=== PATIENT | female | born 1950 | race Caucasian/White ===

== ENCOUNTER → 2016-07-29 | Outpatient (REF) | payer MEDICARE, BC, OTHER ==
[~2016-07-29] MED LIST: /CELE20CA OR; /CELE20CA PO; /ONDA4TA SL; /PANT40TA OR; /WARF25TA OR; ACET65TA OR; ACET65TA PO; ALLE25CA OR; ALLE25CA PO; ATOR1TAB19 PO; BISOPROLOL PO; CALCIUM CITRATE PO; CALCIUM PO; CALCTAB54 PO; COLA100C2 PO; COZA100T2 PO; DIOV160T5 OR; FLON0.05; FLUO20CA8 PO; FLUO20SO PO; GLUC500T3 PO; LIPI10TA OR; LIPI10TA PO; MAG 64 PO; MAGN400T5 PO; MAGNESIUM ASPARTATE PO; MOM30SS PO; MULTIVIT PO; NEUR600T PO; OMEGA FISH OIL PO; PAROXETINE PO; PERC5TAB8 OR; PROZ20CA OR; SLOWTAB OR; SYSTANE ULTRA OU; TRAM50TA2 OR; TRAM50TA2 PO; TYLE325T5 PO; ULTR50TA PO; VIT D 2000 PO; ZEBE5TAB OR; ZOCO5TAB OR; [UNRECOGNIZED DRUG - OTHER] PO; [UNRECOGNIZED DRUG - OTHER] PO; cephalexin OR; pristiq PO; systane TOP
== END ==
LOC: M LAB REF 17:05
PROVIDERS: ATTEND Specialist
DX: Z12.4 Encounter for screening for malignant neoplasm of cervix (principal)
CPT/HCPCS: 87624; G0123

== ENCOUNTER → 2016-09-19 | Outpatient (REF) | payer MEDICARE, BC, OTHER | LOC: M LAB REF 09:26 | PROVIDERS: ATTEND Internal Medicine Gastroenterology | DX: K52.9 Noninfective gastroenteritis and colitis, unspecified (principal) ==

== ENCOUNTER → 2016-12-02 | Outpatient (REF) | payer MEDICARE, OTHER | LOC: M LAB REF 16:33 | PROVIDERS: ATTEND Nurse Practitioner Adult Health | DX: J02.9 Acute pharyngitis, unspecified (principal) ==

== ENCOUNTER → 2017-02-04 | Outpatient (REF) | payer MEDICARE, OTHER | LOC: M LAB REF 13:21 | PROVIDERS: ATTEND Internal Medicine | DX: M10.072 Idiopathic gout, left ankle and foot (principal) ==

== ENCOUNTER → 2017-07-23 | Outpatient (REF) | payer MEDICARE, OTHER ==
[2017-07-23 14:21] LABS: LIPASE 499 U/L (73-393)
[2017-07-23 14:21] LABS: AMYLASE 83 U/L (25-115)
== END ==
LOC: M LAB REF 13:34
DX: R11.2 Nausea with vomiting, unspecified (principal)
CPT/HCPCS: 82150

== ENCOUNTER → 2017-09-15 | Outpatient (REF) | payer MEDICARE, OTHER ==
[2017-09-15 18:46] LABS: LIPASE 250 U/L (73-393)
[2017-09-15 18:46] LABS: AMYLASE 60 U/L (25-115)
== END ==
LOC: M LAB REF 16:45
DX: R10.811 Right upper quadrant abdominal tenderness (principal)
CPT/HCPCS: 82150

== ENCOUNTER → 2017-12-30 | Outpatient (CLI) | payer MEDICARE, BC, OTHER | LOC: M RAD 08:06 | DX: R07.81 Pleurodynia (principal); R10.9 Unspecified abdominal pain; M51.34 Other intervertebral disc degeneration, thoracic region; Z96.653 Presence of artificial knee joint, bilateral | CPT/HCPCS: 78306 ==

== ENCOUNTER → 2018-09-03 | Outpatient (REF) | payer MEDICARE, OTHER | LOC: M LAB REF 16:19 | PROVIDERS: ATTEND Internal Medicine | DX: Z01.89 Encounter for other specified special examinations (principal) ==

== ENCOUNTER → 2018-09-06 | Outpatient (REF) | payer MEDICARE, OTHER | LOC: M LAB REF 16:24 | PROVIDERS: ATTEND Internal Medicine | DX: J34.89 Other specified disorders of nose and nasal sinuses (principal) ==

== ENCOUNTER → 2018-11-18 | Outpatient (REF) | payer MEDICARE, OTHER ==
[~2018-11-18] MED LIST changes: -/CELE20CA OR; -/CELE20CA PO; -/ONDA4TA SL; -/PANT40TA OR; -/WARF25TA OR; +CELE1CAP4 OR; +CELE1CAP4 PO; +COUM1TAB18 OR; +ONDA-1 SL; +PROT1TAB2 OR
[2018-11-19 10:53] LABS: CA19-9 TUMOR MARKER,CARBOHYDRA 208.5 U/ML (<35.0)
== END ==
LOC: M LAB REF 12:45
PROVIDERS: ATTEND Nurse Practitioner Adult Health
DX: R10.11 Right upper quadrant pain (principal); R35.0 Frequency of micturition

== ENCOUNTER → 2019-08-18 | Outpatient (REF) | payer MEDICARE, OTHER ==
[2019-08-19 11:07] LABS: CA19-9 TUMOR MARKER,CARBOHYDRA 41.5 U/ML (<35.0)
== END ==
LOC: M LAB REF 16:36
PROVIDERS: ATTEND Nurse Practitioner Adult Health
DX: R10.11 Right upper quadrant pain (principal); K86.1 Other chronic pancreatitis

== ENCOUNTER → 2020-06-29 | Outpatient (CLI) | payer MEDICARE, OTHER ==
[2020-06-29 16:11] LABS: CREATININE FOR GFR 1.14 MG/DL (0.55-1.30); GLOMERULAR FILTRATION RATE 49.9 (>39)
== END ==
LOC: M WUC 14:36
PROVIDERS: ATTEND Surgery
DX: Z01.818 Encounter for other preprocedural examination (principal); R10.84 Generalized abdominal pain

== ENCOUNTER → 2020-08-16 | Outpatient (CLI) | payer MEDICARE, OTHER ==
--- NOTE | 2020-08-22 01:44 | ECWPNPC ---
PATIENT NAME: GALEN MARTIN : 1950 GENDER: FEMALE VISIT DATE: 08/16/2020 DISCHARGE DATE: 08/16/20 1413 VISIT LOCKED DATE TIME: PHYSICIAN: CLARISSA CONLEY PHYSICIAN PAGER NO: ACTIVE RESOURCE: CLARISSA CONLEY REASON FOR APPOINTMENT 1. ABDOMINAL WALL TRIGGER POINTS HISTORY OF PRESENT ILLNESS DEPRESSION SCREENING: PHQ-2 (2015 EDITION) LITTLE INTEREST OR PLEASURE IN DOING THINGS?NOT AT ALL FEELING DOWN, DEPRESSED, OR HOPELESS?SEVERAL DAYS TOTAL SCORE1 GENERAL: PLEASANT 70-YEAR-OLD FEMALE REFERRED BY DR. KANG TO EVALUATE PERSISTENT ABDOMINAL BURNING PAIN. HISTORY OF MULTIPLE ABDOMINAL HERNIA REPAIRS WITH LAST ONE DONE IN 2013. THIS IS A NEW PAIN THAT BEGAN AFTER PUSHING A WHEELCHAIR APPROXIMATELY [address] SCAN OF THE ABDOMEN AND PELVIS DONE RECENTLY IS BENIGN. PATIENT REPORTS INTERMITTENT BURNING PAIN THAT STARTS ON THE RIGHT MID ABDOMEN AND TRANSVERSES TO THE LEFT APPROXIMATELY 2 TIMES A DAY. REPORTING NORMAL BOWEL AND BLADDER FUNCTION. REPORTS NORMAL ACTIVITY LEVEL. UNDER A LOT OF STRESS LATELY. CURRENTLY BEING EVALUATED BY HER [employer] PRINCIPAL ,DR. WELDON, DUE TO PALPITATIONS. TODAY SHE IS WEARING A HOLTER MONITOR AND IS SCHEDULED FOR FURTHER CARDIAC TESTING. ALSO STATES THAT THEY ARE CONSIDERING STARTING A BETA DWIGHT. DISCUSSED MEDICATION AND TREATMENT OPTIONS. -. FALL RISK SCREENING: SCREENING :NO FALLS REPORTED IN THE LAST YEAR PAIN SCREENING: PATIENT HAS A COMPLAINT OF ACUTE OR CHRONIC PAIN :YES LOCATION OF PAIN:ABDOMEN INTENSITY OF PAIN (SCALE OF 1 TO 10):3 WHAT DOES YOUR PAIN FEEL LIKE:BURNING, INTERMITTENT, TENDER RADIATES ACROSS THE ABDOMEN. DURATION:PERIODIC, INTERMITTENT PAIN IS INCREASED BY:ACTIVITIES, PROLONGED STANDING PAIN IS DECREASED BY:OTHERS PUSHING DOWN ON ABDOMEN RELIEVES THE PAIN. TREATMENT/MEDICATIONS USED TO MANAGE PAIN:OTC PAIN RELIEVERS LEVEL OF RELIEF FROM PAIN TREATMENTS IN THE PAST:25% NURSING NOTE: -. PAIN CENTER INTAKE QUESTIONS: DO YOU HAVE A HISTORY OF MRSA? :YES 09/21/2012 AFTER HERNIA REPAIR IN [place]. DO YOU TAKE A BLOOD THINNERS? :YES ASPIRIN 81MG DO YOU HAVE ANY BLEEDING DISORDERS? :NO ANY NEW NUMBNESS OR WEAKNESS IN YOUR LEGS OR ARMS? :NO ANY PACEMAKER,DEFIBRILLATOR, OR DORSAL COLUMN STIMULATOR? :NO DO YOU HAVE ANY RASHES OR OPEN SORES? :NO ARE YOU ALLERGIC TO IV DYE? :NO ARE YOU DIABETIC? :NO ANY NEW PROBLEMS WITH YOUR MEDICATIONS? :NO HAVE YOU RECEIVED A VACCINE IN THE PAST 30 DAYS? :NO DO YOU PLAN TO RECEIVE A VACCINE IN THE NEXT 21 DAYS? :YES WOULD LIKE THE COVID VACCINATION WHEN IT BECOMES AVAILABLE. DO YOU NEED ANY PRESCRIPTION? :NO DO YOU TAKE ANY IMMUNOSUPPRESSIVE MEDICATIONS? :NO IS THERE A CHANCE YOU COULD BE ? :NO ARE YOU BREAST FEEDING? :NO CURRENT MEDICATIONS TAKING LOSARTAN POTASSIUM 100 MG TABLET 1 TABLET ORALLY ONCE A DAY TAKING HYDROCHLOROTHIAZIDE 12.5 MG CAPSULE 1 CAPSULE IN THE MORNING ORALLY ONCE A DAY TAKING OMEPRAZOLE 40 MG CAPSULE DELAYED RELEASE 1 CAPSULE 30 MINUTES BEFORE MORNING MEAL ORALLY ONCE A DAY TAKING ASPIRIN 81 81 MG TABLET DELAYED RELEASE 1 TABLET ORALLY ONCE A DAY TAKING CALCIUM CITRATE +D 315-250 MG-UNIT TABLET 1 TABLET ORALLY TWICE A DAY TAKING GLUCOSAMINE CHONDRO COMPLEX TAKING MAGNESIUM OXIDE 400 MG TABLET 1 TABLET NEEDED ORALLY ONCE A DAY TAKING ONE-A-DAY WOMENS - TABLET DIRECTED ORALLY TAKING SERTRALINE HCL 50 MG TABLET 1 TABLET ORALLY ONCE A DAY TAKING ATORVASTATIN CALCIUM 10 MG TABLET 1 TABLET ORALLY ONCE A DAY TAKING CEPHALEXIN 500 MG CAPSULE 1 CAPSULE ORALLY EVERY 6 HRS TAKING ACETAMINOPHEN EXTRA STRENGTH 500 MG TABLET 2 TABLET NEEDED ORALLY DIRECTED TAKING PROBIOTIC ACIDOPHILUS - TABLET DIRECTED ORALLY TAKING VITAMIN C 1000 MG TABLET 1 TABLET ORALLY ONCE A DAY TAKING ZYRTEC ALLERGY 10 MG TABLET 1 TABLET ORALLY ONCE A DAY TAKING SYSTANE ULTRA 0.4-0.3 % SOLUTION DIRECTED OPHTHALMIC TAKING FISH OIL 1000 MG CAPSULE 2 CAPSULE ORALLY ONCE A DAY NOT-TAKING SERTRALINE HCL 25 MG TABLET 1 TABLET ORALLY ONCE A DAY MEDICATION LIST REVIEWED AND RECONCILED WITH THE PATIENT PAST MEDICAL HISTORY ESSENTIAL HYPERTENSION HEART DISEASE- AORTIC VALVE DISEASE OSETOARTHRITIS NODULES ON THYROID AND 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 PALPITATIONS BARRETTS ESOPHAGUS/INTESTINAL METAPLASIA RIGHT VENTRICLE BUNDLE BLOCK HIGH CHOLESTEROL ANTIBODY TO RED CELL ANTIGEN K ALLERGIES MORPHINE SULFATE: SENSITIVITY DILAUDID: OVERSEDATION SURGICAL HISTORY CESEARAN SECTION 04/1974 HYSTERECTOMY TUMOR-PARAGANGLLOMA CAROTID ARTERY RIGHT KNEE REPLACEMENT LEFT KNEE REPLACEMENT VENTRAL HERNIA REPAIR -LAPOROSCOPIC 08/15/2011 HEART CATHETERIZATION BILATERAL LASER EYE SURGERY- DRAIN HOLES INSERTED GI TUMOR REMOVED THYROPLASTY- VOCAL CORD PROTHESIS INSERTED INCISIONAL HERNIAL REPAIR 02/20/2012 INCISIONAL HERNIAL REPAIR 09/21/2012 INCISINAL HERNIAL REPAIR AT [facility] 05/05/2014 SOCIAL HISTORY GENERAL: TOBACCO USE ARE YOU A:NONSMOKER LATEX QUESTIONNAIRE LATEX ALLERGY : HAVE YOU EVER DEVELOPED ANY TYPE OF REACTION AFTER HANDLING LATEX PRODUCTS SUCH RUBBER GLOVES, CONDOMS, DIAPHRAGMS, BALLOONS, SOCKS, OR UNDERWEAR?NO LATEX ALLERGY : HAVE YOU EVER DEVELOPED ANY TYPE OF REACTION DURING OR AFTER DENTAL APPOINTMENT, VAGINAL/RECTAL EXAMINATION, SURGICAL PROCEDURE, OR ANY OTHER EXPOSURE?NO LATEX RISK : HAVE YOU EVER HAD ANY DIFFICULTY BREATHING OR HIVES AFTER EATING OR HANDLING ANY FRUITS, OR VEGETABLES; SUCH KIWI, BANANAS, STONE FRUITS, OR CHESTNUTSYES LATEX RISK : DO YOU HAVE A PREVIOUS PERSONAL HISTORY OF MORE THAN NINE SURGERIES, SPINA BIFIDA, OR REPEATED CATHERIZATIONS? YES LATEX RISK : ARE YOU FREQUENTLY EXPOSED TO LATEX PRODUCTS IN YOUR OCCUPATION?NO DATE ASKED : 08/16/2020 ALCOHOL USE: NO. RECREATIONAL DRUG USE DRUG USE?YES LEARNING BARRIERS / SPECIAL NEEDS BARRIERS TO LEARNING?NO HEARING IMPAIRED?YES SLIGHT DEFICIT VISION IMPAIRED?YES :CORRECTIVE LENSES COGNITIVELY IMPAIRED?NO READINESS TO LEARN?YES LEARNING PREFERENCES?NO LEARNING CAPABILITIES PRESENT?YES EMOTIONAL BARRIERS?YES SPECIAL DEVICES?NO DUST MIXER NEEDED?NO REVIEW OF SYSTEMS CONSTITUTIONAL: ANY RECENT FEVER NO . CHILLS NO . WEIGHT CHANGE OF UNKNOWN REASONS NO . GASTROENTEROLOGY: NEW UNEXPLAINABLE CHANGES IN BOWEL CONTROL NO . CONSTIPATION NO . GENITOURINARY: ANY NEW CHANGE IN BLADDER CONTROL? NO . NEUROLOGY: NEW ONSET DIZZINESS OR NEUROLOGICAL CHANGES NOT MENTIONED NO . NEW NUMBNESS OR PAIN PATTERNS NOT MENTIONED AND PERTINENT TO TODAY'S VISIT NO . CARDIOLOGY: NEW CHEST PRESSURE NO . NEW CHEST PAIN NO . RESPIRATORY: UNEXPLAINABLE COUGH NO . NEW SHORTNESS OF BREATH NO . VITAL SIGNS WT 171.2 LBS, HT 62 IN, BMI 31.31 INDEX, BP 160/70 MM HG, REPEAT BP 148/64 MM HG, HR 74 /MIN, RR 18 /MIN, TEMP 99 F, OXYGEN SAT % 95%, SAFE IN ENV? (Y/N) YES, REVIEWED BY: BERTHA. EXAMINATION GENERAL EXAMINATION: GENERALNO ACUTE DISTRESS, WELL NOURISHED AND HYDRATED. PSYCHAPPROPRIATE MOOD AND AFFECT . FACE:UNREMARKABLE. NECK:NO LYMPHADENOPATHY, SUPPLE. LUNGS:CLEAR TO AUSCULTATION BILATERALLY, NO WHEEZES, RHONCHI, RALES. HEART:SLIGHT IRREGULAR RHYTHM. NORMAL RATE. ABDOMEN:NO SPECIFIC TENDERNESS ELICITED WITH PALPATION . ONE AREA CLOSE TO NAVAL REGION WAS A LITTLE BIT TENDER. NO SCAR NEUROMA NOTED. DIAGNOSTIC TESTS REVIEWEDCT ABDOMEN AND PELVIS JUNE 2020 . ASSESSMENTS NEURALGIA INVOLVING ABDOMEN - M79.2 (PRIMARY) TREATMENT NEURALGIA INVOLVING ABDOMEN NOTES: WE WILL CONSIDER TREATMENT OPTIONS ONCE MEDICALLY STABALIZED.CURRENTLY BEING EVALUATED FOR HEART PALPITAIONS WITH CARDIOLOGY. OTHERS CLINICAL NOTES: 08/16/20 MANUAL BP RETAKEN AND PROVIDED TO PROVIDER. CHETAN LOPEZ MA. PROCEDURE CODES FA211 ESTABILISHED PATIENT [facility] CHARGE DISPOSITION & COMMUNICATION FOLLOW UP 2 MONTHS (REASON: ABDOMEN NEURALGIA/CONSIDER GABAPENTIN) ELECTRONICALLY SIGNED BY ELLIOTT BURNETTE ON 08/21/2020 AT 05:50 PM EST DISCLAIMER : THIS IS A VISIT SUMMARY EXTRACTED FROM THE [employer] CHART. IT IS NOT A COPY OF THE [employer] PROGRESS NOTE. TARA
== END ==
LOC: M PAIN 13:00
PROVIDERS: ATTEND Nurse Practitioner Family
DX: M79.2 Neuralgia and neuritis, unspecified (principal); I10 Essential (primary) hypertension; I35.8 Other nonrheumatic aortic valve disorders; M19.90 Unspecified osteoarthritis, unspecified site; K22.70 Barrett's esophagus without dysplasia; E78.00 Pure hypercholesterolemia, unspecified; Z79.82 Long term (current) use of aspirin; Z79.899 Other long term (current) drug therapy; Z88.5 Allergy status to narcotic agent

== ENCOUNTER → 2020-10-02 | Outpatient (CLI) | payer MEDICARE, OTHER ==
--- NOTE | 2020-10-02 15:50 | REP ---
INDICATION: RIGHT SIDED RIB PAIN, T6 AREA COMPARISON: 12/25/2017 TECHNIQUE: PA and lateral. FINDINGS: The mediastinum and cardiac silhouette are normal. The lung garcia demonstrate chronic appearing changes. Relatively new opacity at the right lung base suggesting atelectasis and possible small pleural reaction requires correlation. No further consolidation, effusion, or pneumothorax. Skeletal structures intact. IMPRESSION: Opacity at the right base suggesting atelectasis and possible small pleural effusions/pleural reaction. <Electronically signed by Fam Hatfield > 10/02/20 [id number]
== END ==
LOC: M WUC 14:46
PROVIDERS: ATTEND Physician Assistant Medical
DX: R91.8 Other nonspecific abnormal finding of lung field (principal)

== ENCOUNTER → 2020-10-10 | Outpatient (CLI) | payer MEDICARE, OTHER ==
--- NOTE | 2020-10-10 16:27 | REP ---
INDICATION: PAIN AND SWELLING AFTER FALL. COMPARISON: Or comparison study January 22, 2015.. TECHNIQUE: Five views. FINDINGS: Five views of the right knee demonstrate right knee arthroplasty components in good position unchanged.. There is mild diffuse osteopenia. Vascular calcification is noted. No fracture or subluxation is seen.. No opaque foreign body noted. IMPRESSION: Status post right knee arthroplasty. No traumatic abnormality noted. Vascular calcification and mild diffuse osteopenia.. <Electronically signed by Tc Sprague > 10/10/20 9201
== END ==
LOC: M WUC 14:19
PROVIDERS: ATTEND Physician Assistant Medical
DX: M25.561 Pain in right knee (principal); Z96.651 Presence of right artificial knee joint; M85.88 Other specified disorders of bone density and structure, other site

== ENCOUNTER → 2020-10-15 | Outpatient (CLI) | payer MEDICARE, OTHER ==
--- NOTE | 2020-10-17 05:33 | ECWPNPC ---
PATIENT NAME: GALEN MARTIN : 1950 GENDER: FEMALE VISIT DATE: 10/15/2020 DISCHARGE DATE: 10/15/20 0947 VISIT LOCKED DATE TIME: PHYSICIAN: CLARISSA CONLEY PHYSICIAN PAGER NO: ACTIVE RESOURCE: CLARISSA CONLEY REASON FOR APPOINTMENT 1. ABDOMEN NEURALGIA/CONSIDER GABAPENTIN HISTORY OF PRESENT ILLNESS GENERAL: HERE FOR FOLLOW-UP OF CHRONIC ABDOMINAL PAIN WITH HISTORY OF MULTIPLE ABDOMINAL SURGERIES. INJURED HER ABDOMINAL MUSCLES PUSHING A WHEELCHAIR THIS PAST JUNE. PAIN IS SLOWLY IMPROVING. REPORTS INTERMITTENT EPISODES OF PAIN THAT RESPONDED TO PRESSURE. DISCUSSED MEDICATION OPTIONS. AT THIS POINT HER PAIN IS NOT SEVERE ENOUGH TO CONSIDER INTERVENTIONAL OR MEDICATIONS AND PATIENT IS IN AGREEMENT WITH THIS. FALL RISK SCREENING: SCREENING 09/30/2020 HAD ONE FALL HURT HER RIGHT KNEE, FALL ON THE RIGHT SIDE OF HER BODY. PAIN SCREENING: PATIENT HAS A COMPLAINT OF ACUTE OR CHRONIC PAIN :YES LOCATION OF PAIN:ABDOMEN INTENSITY OF PAIN (SCALE OF 1 TO 10):2 WHAT DOES YOUR PAIN FEEL LIKE:ACHING, SHOOTING DURATION:INTERMITTENT PAIN IS INCREASED BY:OTHERS WALKING PAIN IS DECREASED BY:OTHERS SITTING NURSING NOTE: -. PAIN CENTER INTAKE QUESTIONS: DO YOU HAVE A HISTORY OF MRSA? :YES 09/21/2012 AFTER HERNIA REPAIR IN [place]. DO YOU TAKE A BLOOD THINNERS? :YES ASPIRIN 81MG DO YOU HAVE ANY BLEEDING DISORDERS? :NO ANY NEW NUMBNESS OR WEAKNESS IN YOUR LEGS OR ARMS? :NO ANY PACEMAKER,DEFIBRILLATOR, OR DORSAL COLUMN STIMULATOR? :NO DO YOU HAVE ANY RASHES OR OPEN SORES? :NO ARE YOU ALLERGIC TO IV DYE? :NO ARE YOU DIABETIC? :NO ANY NEW PROBLEMS WITH YOUR MEDICATIONS? :NO HAVE YOU RECEIVED A VACCINE IN THE PAST 30 DAYS? :NO DO YOU PLAN TO RECEIVE A VACCINE IN THE NEXT 21 DAYS? :YES WOULD LIKE THE COVID VACCINATION WHEN IT BECOMES AVAILABLE. DO YOU NEED ANY PRESCRIPTION? :NO DO YOU TAKE ANY IMMUNOSUPPRESSIVE MEDICATIONS? :NO IS THERE A CHANCE YOU COULD BE ? :NO ARE YOU BREAST FEEDING? :NO CURRENT MEDICATIONS TAKING LOSARTAN POTASSIUM 100 MG TABLET 1 TABLET ORALLY ONCE A DAY TAKING HYDROCHLOROTHIAZIDE 12.5 MG CAPSULE 1 CAPSULE IN THE MORNING ORALLY ONCE A DAY TAKING OMEPRAZOLE 40 MG CAPSULE DELAYED RELEASE 1 CAPSULE 30 MINUTES BEFORE MORNING MEAL ORALLY ONCE A DAY TAKING ASPIRIN 81 81 MG TABLET DELAYED RELEASE 1 TABLET ORALLY ONCE A DAY TAKING CALCIUM CITRATE +D 315-250 MG-UNIT TABLET 1 TABLET ORALLY TWICE A DAY TAKING GLUCOSAMINE CHONDRO COMPLEX TAKING MAGNESIUM OXIDE 400 MG TABLET 1 TABLET NEEDED ORALLY ONCE A DAY TAKING ONE-A-DAY WOMENS - TABLET DIRECTED ORALLY TAKING SERTRALINE HCL 50 MG TABLET 1 TABLET ORALLY ONCE A DAY TAKING ATORVASTATIN CALCIUM 10 MG TABLET 1 TABLET ORALLY ONCE A DAY TAKING CEPHALEXIN 500 MG CAPSULE 1 CAPSULE ORALLY EVERY 6 HRS TAKING ACETAMINOPHEN EXTRA STRENGTH 500 MG TABLET 2 TABLET NEEDED ORALLY DIRECTED TAKING PROBIOTIC ACIDOPHILUS - TABLET DIRECTED ORALLY TAKING VITAMIN C 1000 MG TABLET 1 TABLET ORALLY ONCE A DAY TAKING ZYRTEC ALLERGY 10 MG TABLET 1 TABLET ORALLY ONCE A DAY TAKING SYSTANE ULTRA 0.4-0.3 % SOLUTION DIRECTED OPHTHALMIC TAKING FISH OIL 1000 MG CAPSULE 2 CAPSULE ORALLY ONCE A DAY TAKING METOPROLOL TARTRATE 25 MG TABLET 2 TABS DAILY ORALLY TWICE A DAY TAKING ESTRACE 0.1 MG/GM CREAM DIRECTED VAGINAL THREE TIMES PER WEEK NOT-TAKING SERTRALINE HCL 25 MG TABLET 1 TABLET ORALLY ONCE A DAY MEDICATION LIST REVIEWED AND RECONCILED WITH THE PATIENT PAST MEDICAL HISTORY ESSENTIAL HYPERTENSION HEART DISEASE- AORTIC VALVE DISEASE OSETOARTHRITIS NODULES ON THYROID AND 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 PALPITATIONS BARRETTS ESOPHAGUS/INTESTINAL METAPLASIA RIGHT VENTRICLE BUNDLE BLOCK HIGH CHOLESTEROL ANTIBODY TO RED CELL ANTIGEN K ALLERGIES MORPHINE SULFATE: SENSITIVITY DILAUDID: OVERSEDATION SOCIAL HISTORY GENERAL: TOBACCO USE ARE YOU A:NONSMOKER LATEX QUESTIONNAIRE LATEX ALLERGY : HAVE YOU EVER DEVELOPED ANY TYPE OF REACTION AFTER HANDLING LATEX PRODUCTS SUCH RUBBER GLOVES, CONDOMS, DIAPHRAGMS, BALLOONS, SOCKS, OR UNDERWEAR?NO LATEX ALLERGY : HAVE YOU EVER DEVELOPED ANY TYPE OF REACTION DURING OR AFTER DENTAL APPOINTMENT, VAGINAL/RECTAL EXAMINATION, SURGICAL PROCEDURE, OR ANY OTHER EXPOSURE?NO LATEX RISK : HAVE YOU EVER HAD ANY DIFFICULTY BREATHING OR HIVES AFTER EATING OR HANDLING ANY FRUITS, OR VEGETABLES; SUCH KIWI, BANANAS, STONE FRUITS, OR CHESTNUTSNO LATEX RISK : DO YOU HAVE A PREVIOUS PERSONAL HISTORY OF MORE THAN NINE SURGERIES, SPINA BIFIDA, OR REPEATED CATHERIZATIONS? NO LATEX RISK : ARE YOU FREQUENTLY EXPOSED TO LATEX PRODUCTS IN YOUR OCCUPATION?NO DATE ASKED : 10/15/2020 ALCOHOL USE: NO. ALCOHOL SCREENING DID YOU HAVE A DRINK CONTAINING ALCOHOL IN THE PAST YEAR?NO POINTS0 INTERPRETATIONNEGATIVE RECREATIONAL DRUG USE DRUG USE?NO LEARNING BARRIERS / SPECIAL NEEDS CHANGE FROM LAST VISIT?NO BARRIERS TO LEARNING?NO HEARING IMPAIRED?YES SLIGHT DEFICIT VISION IMPAIRED?YES :CORRECTIVE LENSES COGNITIVELY IMPAIRED?NO READINESS TO LEARN?YES LEARNING PREFERENCES?NO LEARNING CAPABILITIES PRESENT?YES EMOTIONAL BARRIERS?YES SPECIAL DEVICES?NO DORMITORY COUNSELOR NEEDED?NO REVIEW OF SYSTEMS CONSTITUTIONAL: ANY RECENT FEVER NO . CHILLS NO . WEIGHT CHANGE OF UNKNOWN REASONS NO . GASTROENTEROLOGY: NEW UNEXPLAINABLE CHANGES IN BOWEL CONTROL NO . CONSTIPATION NO . GENITOURINARY: ANY NEW CHANGE IN BLADDER CONTROL? NO . NEUROLOGY: NEW ONSET DIZZINESS OR NEUROLOGICAL CHANGES NOT MENTIONED NO . NEW NUMBNESS OR PAIN PATTERNS NOT MENTIONED AND PERTINENT TO TODAY'S VISIT NO . CARDIOLOGY: NEW CHEST PRESSURE NO . PATIENT DENIES NO . RESPIRATORY: UNEXPLAINABLE COUGH NO . NEW SHORTNESS OF BREATH NO . VITAL SIGNS WT 173.2 LBS, HT 62 IN, BMI 31.68 INDEX, BP 197/78 MM HG, REPEAT BP 154/67 MM HG, HR 75 /MIN, RR 18 /MIN, TEMP 96.0 F, OXYGEN SAT % 92%, SAFE IN ENV? (Y/N) YES, NA INITIALS AW 0915T.LAUREN PEÑALOZA. EXAMINATION GENERAL EXAMINATION: GENERALAWAKE,ALERT ,PLEASANT . PSYCHAFFECT NORMAL . LUNGS:LUNG HINOJOSA ARE CLEAR TO AUSCULTATION BILATERALLY. GOOD MOVEMENT OF AIR . HEART:S1, S2 IN A REGULAR RATE AND RHYTHM. NO SIGNIFICANT MURMURS, RUBS OR GALLOPS NOTED . ASSESSMENTS NEURALGIA INVOLVING ABDOMEN - M79.2 (PRIMARY) TREATMENT NEURALGIA INVOLVING ABDOMEN NOTES: CONTINUE INTERMITTENT CONSERVATIVE CARE FOR ABDOMINAL PAIN. PATIENT WILL CALL US IF SHE WOULD LIKE TO CONSIDER MORE AGGRESSIVE THERAPY. PROCEDURE CODES FA211 ESTABILISHED PATIENT [facility] CHARGE DISPOSITION & COMMUNICATION FOLLOW UP PT WILL CALL IF NECESSARY FOR F/U (REASON: ABDOMINAL PAIN) ELECTRONICALLY SIGNED BY ELLIOTT BURNETTE ON 10/16/2020 AT 08:50 AM EDT DISCLAIMER : THIS IS A VISIT SUMMARY EXTRACTED FROM THE [employer] CHART. IT IS NOT A COPY OF THE [employer] PROGRESS NOTE. TARA
== END ==
LOC: M PAIN 09:15
PROVIDERS: ATTEND Nurse Practitioner Family
DX: M79.2 Neuralgia and neuritis, unspecified (principal); I10 Essential (primary) hypertension; M19.90 Unspecified osteoarthritis, unspecified site; K22.70 Barrett's esophagus without dysplasia; E78.00 Pure hypercholesterolemia, unspecified; R00.2 Palpitations; I35.1 Nonrheumatic aortic (valve) insufficiency; Z79.82 Long term (current) use of aspirin; Z79.899 Other long term (current) drug therapy; Z88.5 Allergy status to narcotic agent

== ENCOUNTER → 2021-04-02 | Outpatient (CLI) | payer MEDICARE, BC, OTHER ==
[~2021-04-02] MED LIST changes: +CALC600T61 PO; +CIDA500T2 PO; +CVS1CAP2 PO; +D31000TA2 PO; +ECOT81TA5 PO; +FISH1000 PO; +HYDR12CA PO; +LOSA100T50 PO; +METO1TAB87 PO; +OMEP-221 PO; +SERT50TA29 PO; +SYST1SOL4 OU; +VITA500C24 PO; +VITMTA PO; +ZYRTTAB8 PO
--- NOTE | 2021-04-02 16:44 | REP ---
INDICATION: Assess stenosis TECHNIQUE: Carotid ultrasonography was performed bilaterally FINDINGS: Right: CCA systolic: 159.3 centimeters/second CCA diastolic: 21.2 centimeters/seconds ICA systolic: 56.9 centimeters/second ICA diastolic: 16.7 centimeters/second ICA CCA ratio: 0.36 Left: CCA systolic: 83.1 centimeters/second CCA diastolic: 21.5 centimeters/second ICA systolic: 65.3 centimeters/second ICA diastolic: 21.6 centimeters/second ICA CCA ratio: 0.79 Vertebral artery: Right: Antegrade flow left: Antegrade flow A moderate amount of echogenic material is seen along the carotid arterial mcbride some of which casts and acoustic shadow IMPRESSION: According to the SRU criteria there is less than 50% stenosis of the internal carotid artery bilaterally. This is secondary to both calcified and noncalcified atheromatous plaque formation. <Electronically signed by Forest Escobedo > 04/02/21 4120
== END ==
LOC: M RAD 15:45
PROVIDERS: ATTEND Internal Medicine
DX: I65.23 Occlusion and stenosis of bilateral carotid arteries (principal)

== ENCOUNTER → 2021-04-10 | Outpatient (CLI) | payer MEDICARE, BC ==
[~2021-04-10] MED LIST changes: -CALC600T61 PO; -CIDA500T2 PO; -CVS1CAP2 PO; -D31000TA2 PO; -ECOT81TA5 PO; -FISH1000 PO; -HYDR12CA PO; -LOSA100T50 PO; -METO1TAB87 PO; -OMEP-221 PO; -SERT50TA29 PO; -SYST1SOL4 OU; -VITA500C24 PO; -VITMTA PO; -ZYRTTAB8 PO
--- NOTE | 2021-04-10 14:35 | REPMRS ---
Patient History The patient states she had a clinical breast exam in September 2020. Patient is postmenopausal and has history of stomach cancer. No known family history of cancer. Benign stereotactic core biopsy, July 30, 2016. Patient states no breast complaints today. Patient has signed MRS History Sheet. Digital Woman Screen Mammo: April 10, 2021 - Exam #: [id number] Bilateral CC and MLO view(s) were taken. Technologist: Katie Kilgore, Technologist Prior study comparison: April 09, 2020, bilateral digital mammo screening bilat, performed at [facility] [employer] [facility]. November 12, 2018, bilateral digital mammo screening bilat, performed at [facility]. Screening. Digital screening (2D) and (3D) mammography was performed bilaterally. Today's exam was compared to the prior exam/exams. By history, the patient has no complaints of a palpable breast abnormality or other significant breast complaints. The patient is status post right stereotactic core biopsy with a clip in place. The Volpara volumetric breast density category is B, there are scattered areas of fibroglandular densities. There are no dago-areas of internal architectural distortion. There are no dago-soft tissue densities or areas of spiculation. There are no suspicious calcifications. IMPRESSION: BI-RADS Category 2- Benign Findings. There is no evidence of malignant alteration of the breasts. Routine bilateral screening mammogram recommended at its regularly scheduled annual interval. This mammogram was read with the assistance of [employer],an FDA approved computer aided detection system for mammography. The lifetime Tyrer-Cuzick score is 3.0% Negative x-ray reports should not delay surgical consultation if a dominant or clinically suspicious mass is present. Not all breast cancers can be identified by mammography. Therefore, we recommend that you continue to perform regular breast self-examination and physical examination and then promptly contact your physician of any concerns or changes. Adenosis and dense breasts may obscure an underlying neoplasm. Assessment: BI-RADS/ACR category 2 mammogram. Benign Findings. Recommendation Routine screening mammogram. Electronically Signed By: David Avalos MD 04/10/21 0431
== END ==
LOC: M WHC 12:58
PROVIDERS: ATTEND Specialist
DX: Z12.31 Encounter for screening mammogram for malignant neoplasm of breast (principal)

== ENCOUNTER → 2021-05-24 | Outpatient (CLI) | payer MEDICARE, BC, OTHER ==
[~2021-05-24] MED LIST changes: +CALC600T61 PO; +CIDA500T2 PO; +CVS1CAP2 PO; +D31000TA2 PO; +ECOT81TA5 PO; +FISH1000 PO; +HYDR12CA PO; +LOSA100T50 PO; +METO1TAB87 PO; +OMEP-221 PO; +SERT50TA29 PO; +SYST1SOL4 OU; +VITA500C24 PO; +VITMTA PO; +ZYRTTAB8 PO
== END ==
LOC: M LABSMTC 10:55
PROVIDERS: ATTEND Anesthesiology
DX: Z01.818 Encounter for other preprocedural examination (principal); Z11.52 Encounter for screening for COVID-19

== ENCOUNTER 2021-05-29 08:00 | Day surgery (SDC) | payer MEDICARE, BC, OTHER ==
[~2021-05-29] VITALS: Ht 157.5 cm; Wt 75.7 kg
[~2021-05-29 08:00] MED LIST changes: +NS 1,000 ML IV ONE
--- OUTSIDE RECORDS SUMMARY | 2021-05-29 08:03 | CCD | Continuity of Care Document ---
Author Author Lisa BOYKIN M.D. Organization Unknown Address [address] [place] [address] Phone [phone] Care Team Providers Care Senior Designer Name Role Phone Sudarshan Martinez M.D. AUTM [phone] Problems Active Problems Provider Date Gastroesophageal reflux disease Phong Boykin M.D. Ons et: 05/18/2015 Peraza's esophagus Phong Boykin M.D. Onset: 05/18/20 15 Irritable bowel syndrome Phong Boykin M.D. 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 Miranda friend,A.N.PJay Onset: 01/06/2013 History of polyp of colon Juice Hurst.N.PJay Onset: Essential hypertension Onset: 01/06/2013 Social History Type Date Description Comments Sex Unknown ETOH Use Denies alcohol use Tobacco Use Start: Unknown Patient has never smoked Allergies and adverse reactions Active Allergies Criticality Reaction | Severity Comments Date Morphine Unable to assess criticality Increased B lood Pressure, Increased Heart Rate 01/06/2013 Dilaudid Unable to assess criticality Hypotension 01/06/2013 Percocet Unable to assess criticality Hypotension 01/06/2013 Medications Active Medications SIG Qnty Indications Ordering Provide r Date Sutab [id number] Tablets as directed 1box Phong Boykin M.D. 04/09/[address] 1 tabs by mouth every day 90caps Phong Boykin M.D. 013 Fiber Therapy 25% Powder Unknown Vitamin C 1000mg Tablets 1 by mouth tiw Unknown Zyrtec Allergy 10mg Tablets 1 by mouth every day Unknown Magnesium Oxide 500mg Capsules Unknown Fish Oil 1000mg Capsules 3 by mouth every day Unknown Metoprolol Tartrate 25mg Tablets Take 1/2 Tablet By Mouth Two Times A Day Unknown One Daily Multivitamin Women Tablets Unknown Aspirin 81mg Tablets Unknown Sertraline HCL 25mg Tablets Sudarshan Martinez M.D. Hydrochlorothiazide 12.5mg Tablets Sudarshan Martinez M.D. Systane Eye Drops Unknown 000 Calcium Unknown Vitamin D 2000Unit Capsules Unknown Glucosamine Chondroitin Unknown 0 Atorvastatin Calcium 10mg Tablets Sanjuana Clarke,DO Losartan Potassium 50mg Tablets Sanjuana Clarke,DO Immunizations Description No Information Available Vital Signs Date Vital Result Comment 04/09/2021 10:50am Height 62 inches 5'2" Weight 172.00 lb BP Systolic 129 mmHg BP Diastolic 79 mmHg Heart Rate 76 /min BMI (Body Mass Index) 31.5 kg/m2 Weight 78.019 kg Body Temperature 97.2 F 05/18/2015 9:44am Height 64 inches 5'4" Weight 174.00 lb BP Systolic 122 mmHg BP Diastolic 76 mmHg Heart Rate 77 /min BMI (Body Mass Index) 29.9 kg/m2 Weight 78.926 kg Results Description No Information Available Procedures Date Code Description Status 04/09/2021 81202 Office/Outpatient New Moderate M DM 45-59 Minutes Completed Medical Devices Description No Information Available Encounters Type Date Location Provider Dx Diagnosis Office Visit 04/09/2021 10:45a Main Office Phong Boykin M.D. 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 04/09/2021 R12 Heartburn Phong burr M.D. 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 Ashutosh,M.D. Plan of Treatment Future Appointment(s):* 05/29/2021 8:00 am - Phong Boykin M.D. at Main Office 04/09/2021 - Phong Boykin M.D.* R19.4 Change in bowel habit* Comments:* 70 yo wf who presents for a h/o abdominal cramps, and bowel urgency/heartburn. Pt had a GIST tumor in 2010. Had surgery. No rectal bleeding. She has intestinal metaplasia. Colonoscopy + egd in 2014 was normal. She has a new onset of a change in bowel habits with pain, and nausea. Plan:1. Colonoscopy + egd.2. Informed consent. * R12 Heartburn* Comments:* As above. * C49.A2 Gastrointestinal stromal tumor of stomach* Comments:* As above. Functional Status Description No Information Available Mental Status Description No Information Available Referrals Description No Information Available
--- OUTSIDE RECORDS SUMMARY | 2021-05-29 08:03 | CCD | Continuity of Care Document ---
Author Author Lab Schedule, Lisa Bose Organization Unknown Address [address] [place] [address] Phone Unavailable Care Team Providers Care Golf Ball Molder Name Role Phone Sudarshan Martinez JR, MD AUTM Unavailable Joe Irvin MD AUTM [phone] Jacobo Peraza MD AUTM [phone] [facility] AUTM [phone] Gracie Broussard OD AUTM Unavailable Onur Stacy OD AUTM [phone] Bon Carlton MD AUTM [phone] Problems Active Problems Provider Date Benign hypertensive heart disease without congestive h eart failure Sanjuana Clarke DO Onset: 08/12/2011 Hyperlipidemia Sanjuana Clarke DO Onset: 08/12/2011 Social History Type Date Description Comments Sex Unknown ETOH Use Denies alcohol use Tobacco Use Start: Unknown Patient has never smoked Allergies, Adverse Reactions, Alerts Active Allergies Criticality Reaction | Severity Comments Date Morphine Unable to assess criticality HEART PALPITATIONS, RAPID PULSE 04/29/2011 Opiods/Narcotics Unable to assess criticality O2 Sat D rops Dramatically 04/06/2012 Zebeta Unable to assess criticality bradycardia 11/17/2013 Medications Active Medications SIG Qnty Indications Ordering Provide r Date Magnesium Oxide 400mg Tablets 2 by mouth once every day 90tabs Sudarshan Martinez MD 03/18/2021 Hydrochlorothiazide 12.5mg Capsule s 1 by mouth every day 90caps Sudarshan Martinez MD 12/24/2020 Proair HFA 108(90Base) mcg/Act Aer osol 2 puffs up to four times daily as needed for cough or shortness of breath 8.500gm J20.9 Sudarshan Martinez MD 07/19/2019 Azelastine HCL (Nasal) 0.15% Solut ion 2 sprays each nostril in the morning and 4 hours before bedtime 30ml Samara Mckeon, HYDROCRANE OPERATOR 11/03/2018 Indomethacin 25mg Capsules take one capsule by mouth four times a day as needed for gout 30caps Sudarshan Martinez MD 02/04/2017 Nystatin 294179Ngig/GM Cream apply to affected area twice a day 90gm Sudarshan Martinez MD 03/31/2016 Zoloft 50mg Tablets /2 tab b. i.d 90tabs Sudarshan Martinez MD 03/05/[address] 1 by mouth every day 90tabs Sudarshan Martinez MD 11/03/2013 Losartan Potassium 100mg Tablets 1 by mouth every day 90tabs Sudarshan Martinez MD 10/17/2013 Vitamin D-3 2000Unit Tablets 1 po qd Sanjuana Clarke DO 10/17/2013 Atorvastatin Calcium 10mg Tablets 1 by mouth every day at bedtime 90tabs Sudarshan Martinez MD 01/02/2012 Glucosamine-Chondroitin 750-600mg Capsules 2 qd po Sanjuana Clarke DO 05/27/2010 One A Day Multi-Vit 2000Iu F or Women Sanjuana Clarke, 05/27/2010 Calcium Citrate + D 400Iu-D, 630mg Best Tablets 1 po qd Sanjuana Clarke DO 05/27/2010 Systane Solution 2 X'S A Day Sanjuana Clarke DO 05/27/2010 Fiber Formula Capsules one d aily Unknown Claritin 10mg Capsules one da sandy Unknown Metoprolol Tartrate 25mg Tablets 1/2 tab by mouth twice a day Unknown History Medications Magnesium Oxide 400 240mg Packet 1 by mouth once every day 240units Sudarshan Martinez MD 03/18 - 03/18/2021 Medications Administered in Office Medication SIG Qnty Indications Ordering Provider Date Administration Of Flu Vaccine Inj ection Sudarshan Martinez MD 05/21/2017 Administration Of Flu Vaccine Inj ection MARLY Carrasco 4 Immunizations CPT Code Status Date Vaccine Lot # [id number] Given 09/14/2020 Pneumovax 23 [id number] 56814 Given 04/12/2019 Influenza Virus Vaccine, Quadrivalent (Cciiv4), Derived From Cell 01329 Given 11/25/2018 Shingrix Zoster Vaccine (HZV), Recombinant, Subunit, Adjuvanted 26685 Given 09/07/2018 Shingrix 27395 Given 09/07/2018 Boostrix Tetanus Diphtheria Pertussis (Over Age 65) U-Flu Given 04/28/2018 Influenza,Unspecified 52966 Given 05/21/2017 Influenza Vaccin e Quadrivalent Preser/Antibiotic Free Im Use 633186 47488 Given 09/04/2014 Prevnar 13 [id number] Q2037 Given 05/23/2014 Fluvirin Virus Vaccine 06699 01 26149 Given 12/05/2013 Zoster Vaccine Q2037 Given 05/13/2013 Fluvirin Virus Vaccine Q2037 Given 05/14/2012 Fluvirin Virus Vaccine 62748 01 Vital Signs Date Vital Result Comment 03/18/2021 9:38am BP Systolic 132 mmHg BP Diastolic 64 mmHg Heart Rate 78 /min Height 63 inches 5'3" Weight 173.00 lb BMI (Body Mass Index) 30.6 kg/m2 10/10/2020 1:42pm BP Systolic 130 mmHg BP Diastolic 68 mmHg Height 63 inches 5'3" Weight 174.00 lb BMI (Body Mass Index) 30.8 kg/m2 Results Test Acquired Date Facility Test Result H/L Range Note Laboratory test finding 04/18/2021 [facility] Assistant Designer: [place] [address] [phone] Magnesium, Serum <pending> Complete Blood Count 03/14/2021 [facility] Assistant Designer: LEYLA Duke [address] [phone] WBC 8.6 x10*3/UL 4.1 - 10.9 RBC 4.31 x10*6/UL 4.20 - 6.30 Hemoglobin 12.7 g/dL 12.0 - 18.0 Hematocrit 37.9 % 37.0 - 51.0 MCV 87.8 fL 80.0 - 97.0 MCH 29.5 pg 26.0 - 32.0 MCHC 33.6 g/dL 31.0 - 38.0 RDW 13.1 % 11.6 - 13.7 PLT 147 x10*3/UL 140 - 440 MPV 10.0 FL 7.8 - 11.0 Lymph % 16.8 % 10.0 - 58.5 Mid % 4.7 % 1.7 - 9.3 Neut % 78.5 % 37.0 - 92.0 Lymph # 1.4 x10*3/UL 0.6 - 4.1 Mid # 0.4 x10*3/UL 0.1 - 0.6 Neut # 6.8 x10*3/UL 2.0 - 7.8 Laboratory test finding 03/14/2021 [facility], Assistant Designer: [place] [address] [phone] Magnesium 1.7 mg/dL Low 1.8 - 2.4 Comprehensive Chem Profile 03/14/2021 [facility], Assistant Designer: [place] [address] [phone] Glucose 84 mg/dL 74 - 99 1 BUN 26 mg/dL High 7 - 18 Creatinine 1.3 mg/dL 0.6 - 1.3 Sodium 143 mEq/L 136 - 145 Potassium 4.4 mEq/L 3.5 - 5.1 Chloride 107 mEq/L 98 - 107 Carbon Dioxide 27 mEq/L 21 - 32 Calcium 9.8 mg/dL 8.5 - 10.1 Alk. Phosphatase 56 mg/dL 46 - 116 Total Bilirubin 0.4 mg/dL 0.2 - 1.0 Ast (Sgot) 20 U/L 15 - 37 Alt (SGPT) 25 U/L 12 - 78 Albumin 3.8 g/dL 3.4 - 5.0 Total Protein 7.1 g/dL 6.4 - 8.2 A/G Ratio 1.15 CALC 1.00 - 1.90 GFR 40 mL/min Low >60 GFR 49 mL/min Low >60 2 Lipid Profile 03/14/2021 [facility] , Assistant Designer: [place] [address] [phone] Cholesterol 179 mg/dL 131 - 200 Triglycerides 158 mg/dL High 30 - 150 HDL Cholesterol 54 mg/dL 35 - 60 LDL (Calculated) 93 CALC 50 - 159 1 100-125 mg/dL PRE-DIABET ES/FASTING >126 mg/dL DIABETES/FASTING 2 CHRONIC KIDNEY DISEASE STAGI NG PER NKF STAGE I & II GFR >= 60 NORMAL TO MILDLY DECREASED STAGE III GFR 30-59 MODERATELY DECREASED STAGE IV GFR 15-29 SEVERELY DECREASED STAGE V GFR <15 VERY LITTLE GFR LEFT ESRD GFR <15 ON SERVICE CENTER SUPERVISOR Procedures Date Code Description Status 03/18/2021 00048 Office/Outpatient Established Mo d MDM 30-39 Min Completed 11/12/2018 496455102 Bone Mineral Density Test Comple charles 11/12/2018 [id number] Mammogram Completed 10/29/2017 83403288 Mammogram Completed 10/07/2016 [id number] Bone Mineral Density Test Comple charles 07/10/2016 [id number] Mammogram Completed 07/08/2016 [id number] Mammogram Completed 05/30/2015 [id number] Colonoscopy Completed 10/02/2014 [id number] Bone Mineral Density Test Comple [facility] 07/04/2014 [id number] Mammogram Completed 07/01/2013 [id number] Mammogram Completed 01/24/2013 [id number] Colonoscopy Completed 06/25/2012 [id number] Mammogram Completed 06/23/2011 [id number] Mammogram Completed 06/20/2010 [id number] Mammogram Completed 06/17/2010 [id number] Colonoscopy Completed 09/20/2004 [id number] Colonoscopy Completed Medical Devices Description No Information Available Encounters Type Date Location Provider Dx Diagnosis Office Visit 03/18/2021 9:40a [facility] 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 C7A.019 Malignant carcinoid tumor of the sm int, unsp portion R00.2 Palpitations E78.00 Pure hypercholesterolemia, u nspecified E83.42 Hypomagnesemia Assessments Date Code Description Provider 03/18/2021 I13.10 Hypertensive heart a nd chronic kidney disease without heart failure, with stage 1 through stage 4 chronic kidney disease, or unspecified chronic kidney disease Sudarshan Martinez MD 03/18/2021 N18.30 Chronic kidney disease, stage 3 unspecified Sudarshan Martinez MD 03/18/2021 I35.1 Nonrheumatic aortic (valve) insu fficiency Sudarshan Martinez MD 03/18/2021 I65.23 Occlusion and stenosis of bilate ral carotid arteries Sudarshan Martinez MD 03/18/2021 K22.70 Peraza's esophagus without dysp lasia Sudarshan Martinez MD 03/18/2021 C49.A2 Gastrointestinal stromal tumor o f stomach Sudarshan Martinez MD 03/18/2021 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, unspecified portion Sudarshan Martinez MD 03/18/2021 R00.2 Palpitations Sudarshan sullivan MD 03/18/2021 E78.00 Pure hypercholesterolemia, unspe cified Sudarshan Martinez MD 03/18/2021 E83.42 Hypomagnesemia Sudarshan sullivan MD 03/14/2021 E78.00 Pure hypercholesterolemia, unspe cified Sudarshan Martinez MD 03/14/2021 E78.00 Pure hypercholesterolemia, unspe cified Lab Schedule 03/14/2021 E83.42 Hypomagnesemia Sudarshan sullivan MD 03/14/2021 E83.42 Hypomagnesemia Lab Schedule 03/14/2021 I13.10 Hypertensive heart a nd chronic kidney disease without heart failure, with stage 1 through stage 4 chronic kidney disease, or unspecified chronic kidney disease Sudarshan Martinez MD 03/14/2021 I13.10 Hypertensive heart a nd chronic kidney disease without heart failure, with stage 1 through stage 4 chronic kidney disease, or unspecified chronic kidney disease Lab Schedule 03/14/2021 N18.30 Chronic kidney disease, stage 3 unspecified Sudarshan Martinez MD 03/14/2021 N18.30 Chronic kidney disease, stage 3 unspecified Lab Schedule Plan of Treatment Future Appointment(s):* 09/17/2021 8:40 am - Lab Schedule at [facility] * 09/18/2021 10:00 am - Nurse #2 at [facility] * 09/18/2021 10:20 am - Sudarshan Martinez MD at [facility] 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
--- OUTSIDE RECORDS SUMMARY | 2021-05-29 08:04 | CCD | Continuity of Care Document ---
Author Author Lisa BOYKIN M.D. Organization Unknown Address [address] [place] [address] Phone [phone] Care Team Providers Care On Line Csr Name Role Phone Sudarshan Martinez M.D. AUTM [phone] Problems Active Problems Provider Date Gastroesophageal reflux [...] Qnty Indications Ordering Provide r Date Sutab [phone] Tablets as directed 1box Phong Boykin M.D. [...] kg Results Description No Information Available Procedures Description No Information Available Medical Devices Description No Information Available Encounters Description No Information Available Assessments Date Code Description Provider 04/09/2021 R19.4 Change in bowel habit Phong Boykin M.D. 04/09/2021 R12 Heartburn Phong burr M.D. 04/09/2021 C49.A2 Gastrointestinal stromal tumor o f stomach Phong Boykin M.D. Plan of Treatment Future Appointment(s):* 05/29/2021 8:00 [...]
--- OUTSIDE RECORDS SUMMARY | 2021-05-29 08:04 | CCD | Continuity of Care Document ---
Author Author Lab Schedule, Lisa Bose Organization Unknown Address [address] [place] [address] Phone Unavailable Care Team Providers Care Kier Hand Name Role Phone Sudarshan Martinez JR, MD AUTM Unavailable Joe Irvin MD AUTM [phone] Jacobo Peraza MD AUTM [phone] [facility] AUTM [phone] Gracie Broussard OD AUTM Unavailable Onur Stacy OD AUTM [phone] Bon Carlton MD AUTM [phone] Problems Active Problems Provider Date Benign hypertensive [...] 4 hours before bedtime 30ml Samara Mckeon, OUT PATIENT THERAPIST 11/03/2018 Indomethacin 25mg Capsules take one capsule by mouth four times a day as needed for gout 30caps Sudarshan Martinez MD 02/04/2017 Nystatin 866194Mtra/GM Cream apply to affected area twice a [...] CPT Code Status Date Vaccine Lot # 52693 Given 09/14/2020 Pneumovax 23 [id number] 07495 Given 04/12/2019 Influenza Virus Vaccine, Quadrivalent (Cciiv4), Derived From Cell 47042 Given 11/25/2018 Shingrix Zoster Vaccine (HZV), Recombinant, Subunit, Adjuvanted 41920 Given 09/07/2018 Shingrix 76501 Given 09/07/2018 Boostrix Tetanus Diphtheria Pertussis (Over Age 65) U-Flu Given 04/28/2018 Influenza,Unspecified 30516 Given 05/21/2017 Influenza Vaccin e Quadrivalent Preser/Antibiotic Free Im Use 870163 02720 Given 09/04/2014 Prevnar 13 [id number] Q2037 Given 05/23/2014 Fluvirin Virus Vaccine 08813 01 65574 Given 12/05/2013 Zoster Vaccine Q2037 Given 05/13/2013 Fluvirin Virus Vaccine Q2037 Given 05/14/2012 Fluvirin Virus Vaccine 62958 01 Vital Signs Date Vital Result Comment [...] Date Facility Test Result H/L Range Note Complete Blood Count 03/14/2021 [facility] Support Services Manager: [place] [address] [phone] WBC 8.6 x10*3/UL 4.1 - 10.9 RBC [...] 2.0 - 7.8 Laboratory test finding 03/14/2021 [facility], Support Services Manager: [place] [address] [phone] Magnesium 1.7 mg/dL Low 1.8 - 2.4 Comprehensive Chem Profile 03/14/2021 [facility], Support Services Manager: [place] [address] [phone] Glucose 84 mg/dL 74 - 99 1 [...] mL/min Low >60 2 Lipid Profile 03/14/2021 [facility] , Support Services Manager: [place] [address] [phone] Cholesterol 179 mg/dL 131 - 200 Triglycerides [...] LITTLE GFR LEFT ESRD GFR <15 ON SECURITY ALARM TECHNICIAN Procedures Date Code Description Status 10/10/2020 04492 Office/Outpatient Established Lo w MDM 20-29 Min Completed 10/02/2020 94608 Office/Outpatient Established Lo w MDM 20-29 Min Completed 10/02/2020 96002 Impacted Cerumen Instrumentation Completed 11/12/2018 063378185 Bone Mineral Density Test Comple charles 11/12/2018 12067100 Mammogram Completed 10/29/2017 [id number] Mammogram Completed 10/07/2016 359586573 Bone Mineral Density Test Comple charles 07/10/2016 57583268 Mammogram Completed 07/08/2016 [id number] Mammogram Completed 05/30/2015 [id number] Colonoscopy Completed 10/02/2014 790513904 Bone Mineral Density Test Comple charles 07/04/2014 [id number] Mammogram Completed 07/01/2013 [id number] Mammogram Completed 01/24/2013 [id number] Colonoscopy Completed 06/25/2012 [id number] Mammogram Completed 06/23/2011 [id number] Mammogram Completed 06/20/2010 [id number] Mammogram Completed 06/17/2010 [id number] Colonoscopy Completed 09/20/2004 [id number] Colonoscopy Completed Medical Devices Description No Information Available Encounters Type Date Location Provider Dx Diagnosis Office Visit 10/10/2020 1:40p [facility] PMarcus Gonzales JR PA M25.561 Pain in right knee W19.xxxD Unspecified fall, subsequent encounter Office Visit 10/02/2020 2:00p [facility] PVLADIMIR Stanley JR H61.23 Impacted cerumen, bilateral R07.89 Other chest pain Assessments Date Code Description Provider 03/18/2021 I13.10 [...] kidney disease, stage 3 unspecified Lab Schedule 10/10/2020 M25.561 Pain in right knee VLADIMIR Lazcano JR 10/10/2020 W19.xxxD Unspecified fall, subsequent enc ounter VLADIMIR Hernández JR 10/02/2020 H61.23 Impacted cerumen, bilateral Robe VLADIMIR Andrews JR 10/02/2020 R07.89 Other chest pain Дмитрий J Ore Fielder al JR, PA Plan of Treatment Future Appointment(s):* 09/17/2021 8:40 am - Lab Schedule at [facility] * 09/18/2021 10:00 am - Nurse #2 at [facility] * 09/18/2021 10:20 am - Sudarshan Martinez MD at [facility] * 04/18/2021 8:40 am - Lab Schedule at [facility] 09/14/2020 - Sudarshan Martinez MD* [...]
--- OUTSIDE RECORDS SUMMARY | 2021-05-29 08:04 | CCD | Continuity of Care Document ---
Author Author Lab Schedule, Lisa Bose Organization Unknown Address [address] [place] [address] Phone Unavailable Care Team Providers Care Wire Coater Name Role Phone Sudarshan Martinez JR, MD AUTM Unavailable Joe Irvin MD AUTM [phone] Jacobo Peraza MD AUTM [phone] [facility] AUTM [phone] Gracie Broussard OD AUTM Unavailable Onur Stacy OD AUTM [phone] Bon Carlton MD AUTM [phone] Problems Active Problems Provider Date Benign hypertensive [...] SIG Qnty Indications Ordering Provide r Date Hydrochlorothiazide 12.5mg Capsule s 1 by mouth every day 90caps Sudarshan Martinez MD 12/24/2020 Proair HFA 108(90Base) mcg/Act Aer osol 2 puffs up to four times daily as needed for cough or shortness of breath 8.500gm J20.9 Sudarshan Martinez MD 07/19/2019 Azelastine HCL (Nasal) 0.15% Solut ion 2 sprays each nostril in the morning and 4 hours before bedtime 30ml Samara Mckeon, ELLIOTT 11/03/2018 Indomethacin 25mg Capsules take one capsule by mouth four times a day as needed for gout 30caps Sudarshan Martinez MD 02/04/2017 Nystatin 165398Oswq/GM Cream apply to affected area twice a day 90gm Sudarshan Martinez MD 03/31/2016 Zoloft 50mg Tablets 1 tab by mouth every day 90tabs Sudarshan Martinez MD 03/05/[address] 1 by mouth every day 90tabs Sudarshan Martinez MD 11/03/2013 Magnesium Oxide 400 400mg Tablets 1 by mouth every day 60tabs Sudarshan Martinez MD 10/17/2013 Losartan Potassium 100mg Tablets 1 by mouth [...] da sandy Unknown Metoprolol Tartrate 25mg Tablets 1 by mouth twice a day Unknown Medications Administered in Office Medication SIG Qnty Indications Ordering Provider Date Administration Of Flu Vaccine Inj ection Sudarshan Martinez MD 05/21/2017 Administration Of Flu Vaccine Inj carynion MARLY Carrasco 4 Immunizations CPT Code Status Date Vaccine Lot # 29519 Given 09/14/2020 Pneumovax 23 [id number] 35171 Given 04/12/2019 Influenza Virus Vaccine, Quadrivalent (Cciiv4), Derived From Cell 35210 Given 11/25/2018 Shingrix Zoster Vaccine (HZV), Recombinant, Subunit, Adjuvanted 98881 Given 09/07/2018 Shingrix 81302 Given 09/07/2018 Boostrix Tetanus Diphtheria Pertussis (Over Age 65) U-Flu Given 04/28/2018 Influenza,Unspecified 15430 Given 05/21/2017 Influenza Vaccin e Quadrivalent Preser/Antibiotic Free Im Use [id number] 18548 Given 09/04/2014 Prevnar 13 [id number] Q2037 Given 05/23/2014 Fluvirin Virus Vaccine 83410 01 89934 Given 12/05/2013 Zoster Vaccine Q2037 Given 05/13/2013 Fluvirin Virus Vaccine Q2037 Given 05/14/2012 Fluvirin Virus Vaccine 87903 01 Vital Signs Date Vital Result Comment 10/10/2020 1:42pm BP Systolic 130 mmHg BP Diastolic 68 mmHg Height 63 inches 5'3" Weight 174.00 lb BMI (Body Mass Index) 30.8 kg/m2 10/02/2020 2:04pm BP Systolic 112 mmHg BP Diastolic 68 mmHg Heart Rate 66 /min Height 63 inches 5'3" Weight 174.00 lb BMI (Body Mass Index) 30.8 kg/m2 Results Description No Information Available Procedures Date Code Description Status 10/10/2020 99356 Office/Outpatient Established Lo w MDM 20-29 Min Completed 10/02/2020 25242 Office/Outpatient Established Lo w MDM 20-29 Min Completed 10/02/2020 14012 Impacted Cerumen Instrumentation Completed 11/12/2018 274222376 Bone Mineral Density Test Comple charles 11/12/2018 [id number] Mammogram Completed 10/29/2017 [id number] Mammogram Completed 10/07/2016 390820353 Bone Mineral Density Test Comple charles 07/10/2016 [id number] Mammogram Completed 07/08/2016 [id number] Mammogram Completed 05/30/2015 [id number] Colonoscopy Completed 10/02/2014 505056989 Bone Mineral Density Test Comple charles 07/04/2014 [id number] Mammogram Completed 07/01/2013 [id number] Mammogram Completed 01/24/2013 [id number] Colonoscopy Completed 06/25/2012 [id number] Mammogram Completed 06/23/2011 [id number] Mammogram Completed 06/20/2010 [id number] Mammogram Completed 06/17/2010 [id number] Colonoscopy Completed 09/20/2004 [id number] Colonoscopy Completed Medical Devices Description No Information Available Encounters Type Date Location Provider Dx Diagnosis Office Visit 10/10/2020 1:40p [facility] PJayCVLADIMIR Petty JR M25.561 Pain in right knee W19.xxxD Unspecified fall, subsequent encounter Office Visit 10/02/2020 2:00p [facility] PVLADIMIR Stanley JR H61.23 Impacted cerumen, bilateral R07.89 Other chest pain Assessments Date Code Description Provider 10/10/2020 M25.561 Pain in right knee VLADIMIR Lazcano JR 10/10/2020 W19.xxxD Unspecified fall, subsequent enc ounter VLADIMIR Hernández JR 10/02/2020 H61.23 Impacted cerumen, bilateral RobVLADIMIR Hollis JR 10/02/2020 R07.89 Other chest pain VLADIMIR Miller JR Plan of Treatment Future Appointment(s):* 03/18/2021 9:40 am - Sudarshan [facility] MD at [facility] 09/14/2020 - Sudarshan Martinez MD* I13.10 Hypertensive [...]
--- OUTSIDE RECORDS SUMMARY | 2021-05-29 08:04 | CCD | Continuity of Care Document ---
Author Author Lisa Martinez MD Organization Unknown Address [address] [address] Phone [phone] Care Team Providers Care Hand Trimmer Name Role Phone Sudarshan Martinez JR, MD AUTM Unavailable Joe Irvin MD AUTM [phone] Jacobo Peraza MD AUTM [phone] [facility] AUTM [phone] Gracie Broussard OD AUTM Unavailable Onur Stacy OD AUTM [phone] Bon Carlton MD AUTM [phone] Problems Active Problems Provider Date Benign hypertensive [...] 4 hours before bedtime 30ml Samara Mckeon, CASE MANAGEMENT SOCIAL WORKER 11/03/2018 Indomethacin 25mg Capsules take one capsule by mouth four times a day as needed for gout 30caps Sudarshan Martinez MD 02/04/2017 Nystatin 498680Mgib/GM Cream apply to affected area twice a day 90gm Sudarshan Martinez MD 03/31/2016 Zoloft 50mg Tablets /2 tab b. i.d 90tabs Sudarshan Martinez MD 03/05/[address] 1 by mouth every day 90tabs Sudarshan Martinez MD 11/03/2013 Losartan Potassium 100mg Tablets 1 by mouth every day 90tabs Sudarshan Martinez MD 10/17/2013 Vitamin D-3 2000Unit Tablets 1 po qd Sanjuana Clarke, 10/17/2013 Atorvastatin Calcium 10mg Tablets 1 by mouth every day at bedtime 90tabs Sudarshan Martinez MD 01/02/2012 Glucosamine-Chondroitin 750-600mg Capsules 2 qd po Sanjuana Clarke DO 05/27/2010 One A Day Multi-Vit 2000Iu F or Women Sanjuana Clarke DO 05/27/2010 Calcium Citrate + D 400Iu-D, 630mg [...] 05/21/2017 Administration Of Flu Vaccine Inj ection Adelita Limon, ANP 4 Immunizations CPT Code Status Date Vaccine Lot # [id number] Given 09/14/2020 Pneumovax 23 [id number] 75022 Given 04/12/2019 Influenza Virus Vaccine, Quadrivalent ([id number]), Derived From Cell 25790 Given 11/25/2018 Shingrix Zoster Vaccine (HZV), Recombinant, Subunit, Adjuvanted 69018 Given 09/07/2018 Shingrix 89982 Given 09/07/2018 Boostrix Tetanus Diphtheria Pertussis (Over Age 65) U-Flu Given 04/28/2018 Influenza,Unspecified 08121 Given 05/21/2017 Influenza Vaccin e Quadrivalent Preser/Antibiotic Free Im Use [id number] [id number] Given 09/04/2014 Prevnar 13 [id number] Q2037 Given 05/23/2014 Fluvirin Virus Vaccine 91297 01 [id number] Given 12/05/2013 Zoster Vaccine Q2037 Given 05/13/2013 Fluvirin Virus Vaccine Q2037 Given 05/14/2012 Fluvirin Virus Vaccine [id number] 01 Vital Signs Date Vital Result Comment [...] H/L Range Note Complete Blood Count 03/14/2021 [facility] Counter Supply Worker: Dr Sudarshan Martinez [place], [place] [id number] [phone] WBC 8.6 x10*3/UL 4.1 - 10.9 RBC [...] 2.0 - 7.8 Laboratory test finding 03/14/2021 [facility] Counter Supply Worker: [place] Sudars[place] [address] [phone] Magnesium 1.7 mg/dL Low 1.8 - 2.4 Comprehensive Chem Profile 03/14/2021 [facility] Counter Supply Worker: [place] Sudarshan [place] [address] [phone] Glucose 84 mg/dL 74 - 99 1 [...] mL/min Low >60 2 Lipid Profile 03/14/2021 [facility] , Counter Supply Worker: Dr [place]arshan [place] [address] [phone] Cholesterol 179 mg/dL 131 - 200 Triglycerides [...] LITTLE GFR LEFT ESRD GFR <15 ON ELECTROCARDIOGRAPH OPERATOR Procedures Date Code Description Status 03/18/2021 27966 Office/Outpatient Established Mo d MDM 30-39 Min Completed 10/10/2020 11746 Office/Outpatient Established Lo w MDM 20-29 Min Completed 10/02/2020 58903 Office/Outpatient Established Lo w MDM 20-29 Min Completed 10/02/2020 46855 Impacted Cerumen Instrumentation Completed 11/12/2018 302982408 Bone Mineral Density Test Comple charles 11/12/2018 20476202 Mammogram Completed 10/29/2017 73532783 Mammogram Completed 10/07/2016 459383540 Bone Mineral Density Test Comple charles 07/10/2016 68425640 Mammogram Completed 07/08/2016 79030366 Mammogram Completed 05/30/2015 36726815 Colonoscopy Completed 10/02/2014 912840121 Bone Mineral Density Test Comple charles 07/04/2014 48858474 Mammogram Completed 07/01/2013 08344243 Mammogram Completed 01/24/2013 30869534 Colonoscopy Completed 06/25/2012 39184622 Mammogram Completed 06/23/2011 98380325 Mammogram Completed 06/20/2010 29745980 Mammogram Completed 06/17/2010 38546761 Colonoscopy Completed 09/20/2004 93840426 Colonoscopy Completed Medical Devices Description No Information Available Encounters Type Date Location Provider Dx Diagnosis Office Visit 03/18/2021 9:40a [facility] Sudarshan Martinez MD I13.10 Hyp [...] E78.00 Pure hypercholesterolemia, u nspecified E83.42 Hypomagnesemia Office Visit 10/10/2020 1:40p [facility], VLADIMIR Tse JR M25.561 Pain in right knee W19.xxxD Unspecified fall, subsequent encounter Office Visit 10/02/2020 2:00p [facility], VLADIMIR Tse JR H61.23 Impacted cerumen, bilateral R07.89 Other [...] JR 10/02/2020 R07.89 Other chest pain Дмитрий valdovinos JR PA Plan of Treatment Future Appointment(s):* 09/17/2021 8:40 am - Lab Schedule at [facility] * 09/18/2021 10:00 am - Nurse #2 at [facility] * 09/18/2021 10:20 am - Sudarshan Martinez MD at [facility] * 04/18/2021 8:40 am - Lab Schedule at [facility] 09/14/2020 - Sudarshan Martinez MD* [...]
--- OUTSIDE RECORDS SUMMARY | 2021-05-29 08:04 | CCD | Continuity of Care Document ---
Author Author Lisa JARAMILLO DPM Organization Unknown Address [address] [place] [address], [address] [place] [address] Phone [phone] Care Team Providers Care Large Animal Husbandry Technician Name Role Phone Sudarshan Martinez JR, M.D. [facility] [phone] Problems Active Problems Provider Date Plantar fascial fibromatosis Parish Jaramillo DPM Onset: Pronation Parish Jaramillo DPM Onset: 07/04/2019 Peripheral vascular disease Parish Jaramillo DPM Onset: 06/19 Onychomycosis Parish Jaramillo DPM Onset: 07/04/2019 Corns and callosities Parish Jaramillo DPM Onset: 07/04/2019 Social History Type Date Description Comments Sex Unknown ETOH Use Never used alcohol Tobacco Use Start: Unknown Patient has never smoked Allergies, Adverse Reactions, Alerts Active Allergies Criticality Reaction | Severity Comments Date Morphine Unable to assess criticality racing heart 12/12/2011 Percocet Unable to assess criticality nausea 12/12/2011 Medications Active Medications SIG Qnty Indications Ordering Provide r Date Urea 20 Intensive Hydrating Cream 20% Cream apply to callus on feet daily 85gm Parish rene DPM 06/24/2019 Urea 40% Cream a pply twice a day to callus 85units Parish Jaramillo DPM 06/24/2019 Naproxen Ec [address] Table[address] DR 1 bid with food 40tabs Lj Jaramillo DPM 03/28/2013 Indomethacin 25mg Capsules Take One Capsule By Mouth Four Times A Day as Needed For Gout Unknown Fluad Quadrivalent Influenza Vaccine For Adults 0.5ml Prsy Adm 0.5ML Im Utd Unknown Hydrochlorothiazide 12.5mg Tablets Michelle TESFAYE M.D.,[place] Metoprolol Tartrate 25mg Tablets Unknown Fluzone High-Dose 0.5ml Genny Inject 1 2 Intramuscularly Unknown Boostrix 5-2.5-18.5LF-mcg/0.5 Susp ension Michelle TESFAYE M.D.,[place] Hydrochlorothiazide 12.5mg Capsules Michelle TESFAYE M.D.,[place] Losartan Potassium 100mg Tablets Michelle TESFAYE M.D.,[place] Sertraline HCL 50mg Tablets Take One Tablet By Mouth Every Day Unknown Omeprazole 40mg Capsules DR Ashutosh Calvin,Phong Azelastine HCL (Nasal) 0.15% Solut ion [place] Two Sprays In Each Nostril Every Morning And 4 Hours Before AT Bedtime Unknown Prednisone 20mg Tablets Samara Garcia Atorvastatin Calcium 10mg Tablets Michelle TESFAYE M.D.,[place] Shingrix 50mcg/0.5ML Suspension Rec Michelle TESFAYE M.D.,[place] Sulfamethoxazole/Trimethoprim DS 800-160mg Tablets Vince CHAUDHRY,Sanjuana Bactroban Nasal 2% Ointment Vince CHAUDHRY,Sanjuana Tramadol HCL 50mg Tablets Unknown Celebrex 200mg Capsules Unknown Paroxetine HCL 10mg Tablets Vince CHAUDHRY,Sanjuana Bisoprolol Fumarate 5mg Tablets Vince CHAUDHRY,Sanjuana Simvastatin 10mg Tablets Vince CHAUDHRY,Sanjuana Cephalexin 500mg Capsules Unknown Medications Administered in Office Medication SIG Qnty Indications Ordering Provider Date Inject Triamcinolone Acetonide 10 ML, ND C 9270-7887-44 Injection Lj mills, DARLENE 05/20/2010 Inject Dexamthosone Phosphate 11464-725- 30 Injection Lj Jaramillo, DARLENE 010 Inject Triamcinolone Acetonide 10 ML, ND C 1413-6507-11 Injection Lj mills, DPM 03/29/2010 Inject Dexamthosone Phosphate 39815-041- 30 Injection Lj Jaramillo, DPM 010 Immunizations Description No Information Available Vital Signs Date Vital Result Comment 11/30/2018 9:16am Height 62 inches 5'2" Weight 162.00 lb BP Systolic 130 mmHg BP Diastolic 82 mmHg Heart Rate 68 /min BMI (Body Mass Index) 29.6 kg/m2 10/10/2014 9:17am Pain Level 0 Results Description No Information Available Procedures Date Code Description Status 03/19/2021 49846 Debridement 6-10 Nails Electric Completed 03/19/2021 71944 Paring/Cut Benign Lesion 2 To 4 Completed 01/07/2021 81401 Debridement 6-10 Nails Electric Completed 01/07/2021 75054 Paring/Cut Benign Lesion 2 To 4 Completed 10/29/2020 59084 Debridement 6-10 Nails Electric Completed 10/29/2020 39334 Paring/Cut Benign Lesion 2 To 4 Completed Medical Devices Description No Information Available Encounters Description No Information Available Assessments Date Code Description Provider 03/19/2021 B35.1 Tinea unguium Parish Jaramillo, DPM 03/19/2021 I73.89 Other specified peripheral vascu lar diseases Parish Jaramillo, DP 03/19/2021 L84 Corns and callosities Parish Jaramillo, DP 01/07/2021 B35.1 Tinea unguium Parish Jaramillo, DP 01/07/2021 I73.89 Other specified peripheral vascu lar diseases Parish Jaramillo, DPM 01/07/2021 L84 Corns and callosities Parish Jaramillo, DPM 10/29/2020 B35.1 Tinea unguium Parish Jaramillo, DP 10/29/2020 I73.89 Other specified peripheral vascu lar diseases Parish Jaramillo, ADRIANM 10/29/2020 L84 Corns and callosities Parish Jaramillo DPM Plan of Treatment Future Appointment(s):* 05/21/2021 10:30 am - Parish Jaramillo DPM at [facility] Functional Status Description No Information Available Mental Status Description No Information Available Referrals Description No Information Available
[2021-05-29] MEDS ORDERED: LIDOCAINE 2% 100MG/5ML SDV (FOR ANES.) As Ordered ONE (09:13)
[2021-05-29] MEDS ORDERED: propofoL 200 MG/20 ML VIAL As Ordered ONE (09:13)
--- NOTE | 2021-05-29 09:45 | ROOR ---
Patient Name: Lisa Briones Procedure Date: 05/29/2021 9:27 AM Date of : 1950 Age: 70 Room: [facility] Gender: Female Note Status: Finalized Procedure: Upper Endoscopy + Biopsies Indications: Epigastric abdominal pain, Heartburn, Diarrhea Providers: Phong Boykin MD Referring MD: MAVERICK MONDRAGON JR, MD Requesting Provider: Medicines: Monitored Anesthesia Care Complications: No immediate complications. Procedure: Pre-Anesthesia Assessment: - The heart rate, respiratory rate, oxygen saturations, blood pressure, adequacy of pulmonary ventilation, and response to care were monitored throughout the procedure. The Endoscope was introduced through the mouth, and advanced to the second part of duodenum. The upper GI endoscopy was accomplished without difficulty. The patient tolerated the procedure well. Findings: The Z-line was regular and was found 40 cm from the incisors. Multiple biopsies were obtained with cold forceps for evaluation to rule out Peraza's Esophagus randomly at the gastroesophageal junction. A small hiatal hernia was present. No other significant abnormalities were identified in a careful examination of the stomach. Biopsies were taken with a cold forceps in the gastric antrum for Helicobacter pylori testing. The exam of the duodenum was otherwise normal. Biopsies for histology were taken with a cold forceps in the first portion of the duodenum for evaluation of celiac disease. The exam was otherwise without abnormality. Impression: - Z-line regular, 40 cm from the incisors. - Small hiatal hernia. - The examination was otherwise normal. - Multiple biopsies were obtained at the gastroesophageal junction. - Biopsies were taken with a cold forceps for Helicobacter pylori testing. - Biopsies were taken with a cold forceps for evaluation of celiac disease. - The examination was otherwise normal. Recommendation: - Patient has a contact number available for emergencies. The signs and symptoms of potential delayed complications were discussed with the patient. Return to normal activities tomorrow. Written discharge instructions were provided to the patient. - High fiber diet. - Discharge patient to home. - Follow an antireflux regimen. - Continue present medications. - Await pathology results. - Telephone GI clinic for pathology results in 1 week. - Return to referring physician. - The findings and recommendations were discussed with the patient. Procedure Code(s): --- Professional --- 99438, Esophagogastroduodenoscopy, flexible, transoral; with biopsy, single or multiple Diagnosis Code(s): --- Professional --- K44.9, Diaphragmatic hernia without obstruction or gangrene R10.13, Epigastric pain R12, Heartburn R19.7, Diarrhea, unspecified CPT copyright 2019 [employer]. All rights reserved. The codes documented in this report are preliminary and upon regional construction manager review may be revised to meet current compliance requirements. Phong Boykin MD Phong Boykin MD 05/29/2021 9:44:37 AM Electronically signed by Phong Boykin MD Number of Addenda: 0 Note Initiated On: 05/29/2021 9:27 AM Estimated Blood Loss: Estimated blood loss: none.
[2021-05-29] MEDS ORDERED: ePHEDrine SULFATE 25 MG/5 ML(5MG/ML) SYRINGE As Ordered ONE (10:00)
--- NOTE | 2021-05-29 10:06 | ROOR ---
Patient Name: Lisa Briones Procedure Date: 05/29/2021 9:28 AM Date of : 1950 Age: 70 Room: [facility] Gender: Female Note Status: Finalized Procedure: Total Colonoscopy to Cecum + Bx. To r/o Microscopic Colitis Indications: Lower abdominal pain, Clinically significant diarrhea of unexplained origin Providers: Phong Boykin MD Referring MD: MAVERICK MONDRAGON JR, MD Requesting Provider: Medicines: Monitored Anesthesia Care Complications: No immediate complications. Procedure: Pre-Anesthesia Assessment: - The heart rate, respiratory rate, oxygen saturations, blood pressure, adequacy of pulmonary ventilation, and response to care were monitored throughout the procedure. The Colonoscope was introduced through the anus and advanced to the cecum, identified by appendiceal orifice and ileocecal valve. The colonoscopy was performed without difficulty. The patient tolerated the procedure well. The quality of the bowel preparation was good. Findings: The perianal and digital rectal examinations were normal. Non-bleeding internal hemorrhoids were found during retroflexion. The hemorrhoids were small and Grade I (internal hemorrhoids that do not prolapse). Multiple small and large-mouthed diverticula were found in the recto-sigmoid colon, sigmoid colon and descending colon. Biopsies for histology were taken with a cold forceps from the ascending colon, transverse colon, descending colon and rectosigmoid colon for evaluation of microscopic colitis. The exam was otherwise without abnormality on direct and retroflexion views. Impression: - Non-bleeding internal hemorrhoids. - Diverticulosis in the recto-sigmoid colon, in the sigmoid colon and in the descending colon. - The examination was otherwise normal on direct and retroflexion views. - Biopsies were taken with a cold forceps from the ascending colon, transverse colon, descending colon and rectosigmoid colon for evaluation of microscopic colitis. - The exam was otherwise normal to the cecum. Recommendation: - Patient has a contact number available for emergencies. The signs and symptoms of potential delayed complications were discussed with the patient. Return to normal activities tomorrow. Written discharge instructions were provided to the patient. - High fiber diet. - Discharge patient to home. - Continue present medications. - Await pathology results. - Telephone GI clinic for pathology results in 1 week. - Repeat colonoscopy PRN for screening purposes. - Return to referring physician. - The findings and recommendations were discussed with the patient. Procedure Code(s): --- Professional --- 93329, Colonoscopy, flexible; with biopsy, single or multiple Diagnosis Code(s): --- Professional --- K64.0, First degree hemorrhoids R10.30, Lower abdominal pain, unspecified R19.7, Diarrhea, unspecified K57.30, Diverticulosis of large intestine without perforation or abscess without bleeding CPT copyright 2019 [employer]. All rights reserved. The codes documented in this report are preliminary and upon business and financial counsel review may be revised to meet current compliance requirements. Phong Boykin MD Phong Boykin MD 05/29/2021 10:06:38 AM Electronically signed by Phong Boykin MD Number of Addenda: 0 Note Initiated On: 05/29/2021 9:28 AM Estimated Blood Loss: Estimated blood loss: none.
[2021-05-29 10:32] VITALS: BP 108/60
== END 2021-05-29 10:54 | disposition home or self-care (01) ==
LOC: M OPP 08:00
PROVIDERS: ATTEND Internal Medicine Gastroenterology
DX: K44.9 Diaphragmatic hernia without obstruction or gangrene (principal); K64.0 First degree hemorrhoids; K57.30 Diverticulosis of large intestine without perforation or abscess without bleeding; R10.13 Epigastric pain; R12 Heartburn; R19.7 Diarrhea, unspecified; R10.30 Lower abdominal pain, unspecified; K21.9 Gastro-esophageal reflux disease without esophagitis; K58.8 Other irritable bowel syndrome; I10 Essential (primary) hypertension; Z79.899 Other long term (current) drug therapy; Z88.5 Allergy status to narcotic agent

== ENCOUNTER → 2021-07-31 | Outpatient (CLI) | payer MEDICARE, BC, OTHER ==
[~2021-07-31] MED LIST changes: +LOSA100T45 PO; -LOSA100T50 PO; -NS 1,000 ML IV ONE
== END ==
LOC: M LABSMTC 12:38
PROVIDERS: ATTEND Pediatrics
DX: Z11.52 Encounter for screening for COVID-19 (principal)
CPT/HCPCS: C9803; U0003

== ENCOUNTER → 2021-12-20 | Outpatient (CLI) | payer MEDICARE, BC, OTHER ==
[~2021-12-20] MED LIST changes: -D31000TA2 PO; -OMEP-221 PO; +OMEP40CA5 PO; +VITA100093 PO
== END ==
LOC: M WUC 10:15
PROVIDERS: ATTEND Internal Medicine
DX: J98.11 Atelectasis (principal)

== ENCOUNTER → 2022-01-21 | Outpatient (CLI) | payer MEDICARE, BC, OTHER ==
[~2022-01-21] MED LIST changes: +ISOVUE-370 76% 100ML VIAL As Ordered ONE
== END ==
LOC: M RAD 14:54
PROVIDERS: ATTEND Physician Assistant Medical
DX: R05.9 Cough, unspecified (principal)
CPT/HCPCS: 71260; Q9967

== ENCOUNTER → 2022-02-05 | Outpatient (CLI) | payer MEDICARE, BC, OTHER ==
[~2022-02-05] MED LIST changes: -ISOVUE-370 76% 100ML VIAL As Ordered ONE; +MAGN400C PO; +VERA40TA
== END ==
LOC: M LABSMTC 09:31
PROVIDERS: ATTEND Anesthesiology
DX: Z11.52 Encounter for screening for COVID-19 (principal)

== ENCOUNTER 2022-02-10 10:28 | Day surgery (SDC) | payer MEDICARE, BC, OTHER ==
[~2022-02-10] VITALS: Ht 157.5 cm; Wt 76.7 kg
[~2022-02-10 10:28] MED LIST changes: +CYCLOPENTOLATE 1% OPHTH SOLN 2 ML BTL OD SCH; +FLURBIPROFEN 0.03% OPHTH SOLN 2.5 ML OD SCH; +LIDOCAINE 1% SDV 5ML VIAL As Ordered ONE; +LR 1,000 ML IV SCH; +PHENYLEPHRINE 2.5% OPHTH SOL 2ML OD SCH; +TETRACAINE 0.5% OPHTH SOLN 4ML OD SCH
[2022-02-10] MEDS ORDERED: MIDAZOLAM INJ 2MG/2ML VIAL (J2250 PER 1MG) As Ordered ONE (12:00)
[2022-02-10 12:45] VITALS: BP 134/58
== END 2022-02-10 12:49 | disposition home or self-care (01) ==
LOC: M SDC 10:28
PROVIDERS: ATTEND Ophthalmology
DX: H25.11 Age-related nuclear cataract, right eye (principal); I10 Essential (primary) hypertension; E78.5 Hyperlipidemia, unspecified; I35.9 Nonrheumatic aortic valve disorder, unspecified; D64.9 Anemia, unspecified; K21.9 Gastro-esophageal reflux disease without esophagitis; F41.9 Anxiety disorder, unspecified; F32.A Depression, unspecified; N18.30 Chronic kidney disease, stage 3 unspecified; M10.9 Gout, unspecified; Z88.5 Allergy status to narcotic agent; K57.92 Diverticulitis of intestine, part unspecified, without perforation or abscess without bleeding; Z79.899 Other long term (current) drug therapy
CPT/HCPCS: 66984; J2250; V2632

== ENCOUNTER → 2022-03-05 | Outpatient (CLI) | payer MEDICARE, BC, OTHER ==
[~2022-03-05] MED LIST changes: -CYCLOPENTOLATE 1% OPHTH SOLN 2 ML BTL OD SCH; -FLURBIPROFEN 0.03% OPHTH SOLN 2.5 ML OD SCH; -LIDOCAINE 1% SDV 5ML VIAL As Ordered ONE; -LR 1,000 ML IV SCH; -PHENYLEPHRINE 2.5% OPHTH SOL 2ML OD SCH; -TETRACAINE 0.5% OPHTH SOLN 4ML OD SCH
== END ==
LOC: M LABSMTC 11:46
PROVIDERS: ATTEND Anesthesiology
DX: Z11.52 Encounter for screening for COVID-19 (principal)

== ENCOUNTER 2022-03-10 10:11 | Day surgery (SDC) | payer MEDICARE, BC, OTHER ==
[~2022-03-10] VITALS: Ht 157.5 cm; Wt 76.6 kg
[~2022-03-10 10:11] MED LIST changes: +LIDOCAINE 1% SDV 5ML VIAL As Ordered ONE; +LR 1,000 ML IV SCH; +MIDAZOLAM INJ 2MG/2ML VIAL (J2250 PER 1MG) As Ordered ONE; +TETRACAINE 0.5% OPHTH SOLN 4ML OS SCH; +fentaNYL 100 MCG/2 ML INJECTION As Ordered ONE
[2022-03-10] MEDS: CYCLOPENTOLATE 1% OPHTH SOLN 2 ML BTL OS SCH ×3 (10:48→11:08)
[2022-03-10] MEDS: PHENYLEPHRINE 2.5% OPHTH SOL 2ML OS SCH ×3 (10:48→11:08)
[2022-03-10] MEDS: FLURBIPROFEN 0.03% OPHTH SOLN 2.5 ML OS SCH ×3 (10:49→11:09)
[2022-03-10 11:59] VITALS: BP 135/70
== END 2022-03-10 12:29 | disposition home or self-care (01) ==
LOC: M SDC 10:11
PROVIDERS: ATTEND Ophthalmology
DX: H25.12 Age-related nuclear cataract, left eye (principal); I13.10 Hypertensive heart and chronic kidney disease without heart failure, with stage 1 through stage 4 chronic kidney disease, or unspecified chronic kidney disease; N18.30 Chronic kidney disease, stage 3 unspecified; E78.5 Hyperlipidemia, unspecified; I35.1 Nonrheumatic aortic (valve) insufficiency; I65.23 Occlusion and stenosis of bilateral carotid arteries; R00.2 Palpitations; R91.1 Solitary pulmonary nodule; M19.90 Unspecified osteoarthritis, unspecified site; F41.9 Anxiety disorder, unspecified; Z79.899 Other long term (current) drug therapy; Z79.82 Long term (current) use of aspirin; Z88.5 Allergy status to narcotic agent; Z88.8 Allergy status to other drugs, medicaments and biological substances
CPT/HCPCS: 66984; J2250; J3010; V2632

== ENCOUNTER → 2022-04-11 | Outpatient (CLI) | payer MEDICARE, BC, OTHER ==
[~2022-04-11] MED LIST changes: -LIDOCAINE 1% SDV 5ML VIAL As Ordered ONE; -LR 1,000 ML IV SCH; -MIDAZOLAM INJ 2MG/2ML VIAL (J2250 PER 1MG) As Ordered ONE; -TETRACAINE 0.5% OPHTH SOLN 4ML OS SCH; -fentaNYL 100 MCG/2 ML INJECTION As Ordered ONE
== END ==
LOC: M WHC 11:38
PROVIDERS: ATTEND Specialist
DX: Z12.31 Encounter for screening mammogram for malignant neoplasm of breast (principal)

== ENCOUNTER → 2023-04-23 | Outpatient (CLI) | payer MEDICARE, BC, OTHER ==
[~2023-04-23] MED LIST changes: -LOSA100T45 PO; +LOSA100T46 PO
== END ==
LOC: M WHC 10:42
PROVIDERS: ATTEND Specialist
DX: Z12.31 Encounter for screening mammogram for malignant neoplasm of breast (principal)

== ENCOUNTER → 2023-10-12 | Outpatient (REF) | payer MEDICARE, OTHER ==
[2023-10-12 18:55] LABS: IRON (FE) 49 UG/DL (50-170); PERCENT SATURATION 17.9 % (13.2-45.0); TOTAL IRON BINDING CAPACITY 274 UG/DL (250-425)
[2023-10-12 18:57] LABS: VITAMIN B12 LEVEL 800 PG/ML (211-911)
[2023-10-12 18:58] LABS: FOLATE > 24.0 NG/ML (>5.4)
== END ==
LOC: M LAB REF 11:29
PROVIDERS: ATTEND Internal Medicine
DX: Z86.14 Personal history of Methicillin resistant Staphylococcus aureus infection (principal); D50.9 Iron deficiency anemia, unspecified

== ENCOUNTER → 2023-10-14 | Outpatient (CLI) | payer MEDICARE, BC | LOC: M PLAIMG 14:18 | PROVIDERS: ATTEND Internal Medicine | DX: R42 Dizziness and giddiness (principal) ==

== ENCOUNTER → 2024-01-04 | Outpatient (REF) | payer MEDICARE, BC, OTHER ==
[2024-01-04 12:23] LABS: CHOLESTEROL RISK RATIO 2.96 (<5); HDL CHOLESTEROL 49.9 MG/DL (>40); LDL CHOLESTEROL 72.7 MG/DL (<100); NON-HDL-C 98.1 MG/DL
== END ==
LOC: M LABWUC 11:13
PROVIDERS: ATTEND Nurse Practitioner Acute Care
DX: E78.5 Hyperlipidemia, unspecified (principal)

== ENCOUNTER → 2024-02-03 | Outpatient (REF) | payer MEDICARE, BC, OTHER ==
[~2024-02-03] MED LIST changes: +ACET1TAB55 PO; +ATOR1TAB21 PO; +C-101TAB3 PO; +CALC250T PO; +CETI-14 PO; +CIPR500T39 PO; +COLA100C5 PO; +FISH100015 PO; +GLUCTAB7 PO; +IRBE300T25 PO; +KETO2CR EXT; +MACR100C43 PO; +MAGN250T11 PO; +METR-265 PO; +MIRA3350 PO; +MULT-40 PO; +NORT10CA2 PO; +ONDA-282 PO; +RISATAB3 PO; +SENO8.6T5 PO
[2024-02-04 13:54] LABS: FERRITIN 164.6 NG/ML (7.3-270.7)
[2024-02-04 14:00] LABS: IRON (FE) 26 UG/DL (50-170)
[2024-02-04 14:01] LABS: PERCENT SATURATION 11.7 % (13.2-45.0); TOTAL IRON BINDING CAPACITY 222 UG/DL (250-425)
[2024-02-08 14:12] LABS: LYME TOTAL ANTIBODY CIA <= 0.90 Index (<=0.90)
[2024-02-08 14:52] LABS: CYCLIC CITRULLINATED PEPTIDE < 16 UNITS (<20)
[2024-02-08 17:03] LABS: IMMUNOGLOBULIN A > 540.0 MG/DL (40-350)
[2024-02-09 02:13] LABS: TISSUE TRANSGLUTAMINASE IgA < 1.0 U/mL (<15.0)
[2024-02-09 10:07] LABS: ANA PATTERN Cytoplasmic (NEGATIVE); ANA SCREEN, IFA POSITIVE (NEGATIVE); ANA TITER 1:40 titer (<1:40)
== END ==
LOC: M LAB REF 12:11
PROVIDERS: ATTEND Internal Medicine
DX: R42 Dizziness and giddiness (principal); N18.30 Chronic kidney disease, stage 3 unspecified; Z79.899 Other long term (current) drug therapy

== ENCOUNTER 2024-02-11 17:50 | Inpatient (IN) | payer MEDICARE, BC ==
[~2024-02-11] VITALS: Ht 157.5 cm; Wt 72.6 kg
[~2024-02-11 17:50] MED LIST changes: -ATOR1TAB21 PO; -C-101TAB3 PO; -CALC250T PO; -CETI-14 PO; -FISH100015 PO; -GLUCTAB7 PO; -IRBE300T25 PO; -KETO2CR EXT; -MACR100C43 PO; -MAGN250T11 PO; -MULT-40 PO; -NORT10CA2 PO; -ONDA-282 PO; -RISATAB3 PO
[2024-02-11 19:35] LABS: BASO % 0.3 % (0.0-1.0); EOS # 0.1 10^3/uL (0.0-0.5); EOS % 0.6 % (0.0-3.0); HEMATOCRIT 33.9 % (36.0-47.0); HEMOGLOBIN 10.6 g/dl (12.0-15.5); LYMPH # 1.4 10^3/uL (1.5-5.0); LYMPH % 10.3 % (24.0-44.0); MEAN CORPUSCULAR HEMOGLOBIN 27.9 pg (27.0-33.0); MEAN CORPUSCULAR HGB CONC 31.3 g/dl (32.0-36.5); MEAN CORPUSCULAR VOLUME 89.2 fl (80.0-96.0); MONO # 0.8 10^3/uL (0.0-0.8); MONO % 6.2 % (2.0-8.0); NEUTROPHILS # 10.8 10^3/uL (1.5-8.5); NEUTROPHILS % 81.8 % (36.0-66.0); PLATELET COUNT, AUTOMATED 277 10^3/uL (150-450); WHITE BLOOD COUNT 13.2 10^3/uL (4.0-10.0)
[2024-02-11 20:07] LABS: ALBUMIN 2.9 G/DL (3.2-5.2); BILIRUBIN,DIRECT 0.1 MG/DL (<0.4); BILIRUBIN,TOTAL 0.3 MG/DL (0.3-1.2); CALCIUM LEVEL 9.6 MG/DL (8.3-10.6); CREATININE FOR GFR 1.38 MG/DL (0.55-1.30); GLOMERULAR FILTRATION RATE 39.7 (>39); TOTAL PROTEIN 7.2 G/DL (5.7-8.2)
[2024-02-11] MEDS: NS 1,000 ML IV SCH (23:28)
[2024-02-11] MEDS: CIPROFLOXACIN 400 MG in IV 1 EA IV ONE (23:29)
[2024-02-12] MEDS ORDERED: ACETAMINOPHEN TAB 650MG DOSE (2X325MG) PO PRN (00:15)
[2024-02-12] MEDS ORDERED: C-101TAB3 PO (01:13)
[2024-02-12] MEDS ORDERED: MULT-40 PO (01:13)
[2024-02-12] MEDS ORDERED: FISH100015 PO (01:13)
[2024-02-12] MEDS ORDERED: GLUCTAB7 PO (01:13)
[2024-02-12] MEDS ORDERED: MACR100C43 PO (01:13)
[2024-02-12] MEDS ORDERED: ATOR1TAB21 PO (01:13)
[2024-02-12] MEDS ORDERED: MAGN250T11 PO (01:13)
[2024-02-12] MEDS ORDERED: CALC250T PO (01:13)
[2024-02-12] MEDS ORDERED: RISATAB3 PO (01:13)
[2024-02-12] MEDS ORDERED: CETI-14 PO (01:13)
[2024-02-12] MEDS ORDERED: NORT10CA2 PO (01:16)
[2024-02-12] MEDS ORDERED: IRBE300T25 PO (01:16)
[2024-02-12] MEDS ORDERED: KETO2CR EXT (01:16)
[2024-02-12] MEDS ORDERED: ONDA-282 PO (01:16)
[2024-02-12] MEDS ORDERED: HOME MED LIST COMPLETE! XX SCH (01:25)
[2024-02-12] MEDS: metroNIDAZOLE 500 MG in IV 1 EA IV ONE (05:38)
[2024-02-12] MEDS: NS 1,000 ML IV SCH (05:39)
[2024-02-12] MEDS: IRBESARTAN 150MG TAB PO SCH (06:05)
[2024-02-12] MEDS: NORTRIPTYLINE 10 MG CAP PO SCH (06:06)
[2024-02-12 08:12] LABS: HEMATOCRIT 32.6 % (36.0-47.0); HEMOGLOBIN 10.2 g/dl (12.0-15.5); MEAN CORPUSCULAR HEMOGLOBIN 27.8 pg (27.0-33.0); MEAN CORPUSCULAR HGB CONC 31.3 g/dl (32.0-36.5); MEAN CORPUSCULAR VOLUME 88.8 fl (80.0-96.0); PLATELET COUNT, AUTOMATED 277 10^3/uL (150-450); RED BLOOD COUNT 3.67 10^6/uL (4.00-5.40); WHITE BLOOD COUNT 9.5 10^3/uL (4.0-10.0)
[2024-02-12] MEDS: metroNIDAZOLE 500 MG in IV 1 EA IV SCH (08:14)
[2024-02-12] MEDS: OMEPRAZOLE 20MG CAP PO SCH (08:17)
[2024-02-12] MEDS: ATORVASTATIN 20 MG TAB PO SCH (08:17)
[2024-02-12] MEDS: SERTRALINE HCL 50 MG TAB PO SCH (08:17)
[2024-02-12] MEDS: MULTIVITAMINS/MINERALS THERAP 1 TAB PO SCH (08:17)
[2024-02-12] MEDS: LACTOBACILLUS ACIDOPHILUS CAP (BACID) PO SCH (08:17)
[2024-02-12] MEDS: VITAMIN D 1,000 INTERNATIONAL UNITS TABLET PO SCH (08:17)
[2024-02-12] MEDS: METOPROLOL TART 25 MG TABLET PO SCH (08:20)
[2024-02-12 08:24] LABS: INR 1.2; PARTIAL THROMBOPLASTIN TIME 28.8 SECONDS (24.8-34.2); PROTHROMBIN TIME 14.8 SECONDS (12.5-14.5)
[2024-02-12 08:39] LABS: ALBUMIN 2.6 G/DL (3.2-5.2); BILIRUBIN,TOTAL 0.4 MG/DL (0.3-1.2); CALCIUM LEVEL 9.4 MG/DL (8.3-10.6); CREATININE FOR GFR 1.26 MG/DL (0.55-1.30); GLOMERULAR FILTRATION RATE 44.1 (>39); POTASSIUM SERUM 5.2 MMOL/L (3.5-5.1); TOTAL PROTEIN 6.6 G/DL (5.7-8.2)
[2024-02-12] MEDS ORDERED: PANTOPRAZOLE 40MG VIAL IV SCH (09:00)
[2024-02-12] MEDS ORDERED: ASPIRIN 81MG ENTERIC TABLET PO SCH (09:00)
[2024-02-12 10:29] VITALS: BP 142/58; TEMP 97.3; O2SAT 96
[2024-02-12] MEDS: CIPROFLOXACIN 400 MG in IV 1 EA IV SCH (11:19)
[2024-02-12] MEDS: HEPARIN SOD (PORCINE) 5000UNITS/ML 1ML VIAL/SYRINGE SQ SCH (14:24)
[2024-02-12 20:59] VITALS: BP 111/61; TEMP 96.8; O2SAT 97
[2024-02-13 04:30] VITALS: BP 111/51; TEMP 97.5; O2SAT 95
[2024-02-13 05:44] LABS: HEMATOCRIT 29.3 % (36.0-47.0); HEMOGLOBIN 8.9 g/dl (12.0-15.5); MEAN CORPUSCULAR HEMOGLOBIN 27.5 pg (27.0-33.0); MEAN CORPUSCULAR HGB CONC 30.4 g/dl (32.0-36.5); MEAN CORPUSCULAR VOLUME 90.4 fl (80.0-96.0); PLATELET COUNT, AUTOMATED 215 10^3/uL (150-450); RED BLOOD COUNT 3.24 10^6/uL (4.00-5.40); WHITE BLOOD COUNT 7.9 10^3/uL (4.0-10.0)
[2024-02-13 06:11] LABS: ALBUMIN 2.2 G/DL (3.2-5.2); BILIRUBIN,TOTAL 0.2 MG/DL (0.3-1.2); CALCIUM LEVEL 8.3 MG/DL (8.3-10.6); CREATININE FOR GFR 1.26 MG/DL (0.55-1.30); GLOMERULAR FILTRATION RATE 44.1 (>39); POTASSIUM SERUM 4.8 MMOL/L (3.5-5.1); TOTAL PROTEIN 5.6 G/DL (5.7-8.2)
[2024-02-13] MEDS ORDERED: METR-265 PO (08:01)
[2024-02-13] MEDS ORDERED: CIPR500T39 PO (08:01)
[2024-02-13] MEDS ORDERED: ACET1TAB55 PO (08:01)
[2024-02-13 09:08] VITALS: BP 119/59
[2024-02-13] MEDS ORDERED: MOM 30ML SUSPENSION UDC PO PRN (10:20)
[2024-02-13] MEDS: SENNA 8.6 MG TAB (SENOKOT) PO SCH (10:54)
[2024-02-13] MEDS: DOCUSATE SODIUM 100MG CAPSULE PO SCH (10:54)
[2024-02-13 12:00] VITALS: BP 136/60; TEMP 97.3; O2SAT 95
[2024-02-13] MEDS ORDERED: SENO8.6T5 PO (13:23)
[2024-02-13] MEDS ORDERED: MIRA3350 PO (13:23)
[2024-02-13] MEDS ORDERED: COLA100C5 PO (13:23)
[2024-02-13] MEDS: metroNIDAZOLE (FLAGYL) 500MG TABLET PO SCH (15:02)
[2024-02-13] MEDS ORDERED: CIPROFLOXACIN 500MG TABLET PO SCH (18:00)
== END 2024-02-13 16:29 | disposition home or self-care (01) | DRG 392 ==
LOC: M ED 17:50 → M ED INP 02-12 00:12 → M MSPAV 02-12 10:32
PROVIDERS: ADMIT Internal Medicine; ATTEND Internal Medicine
DX: K57.20 Diverticulitis of large intestine with perforation and abscess without bleeding (principal); N17.9 Acute kidney failure, unspecified; N39.0 Urinary tract infection, site not specified; I10 Essential (primary) hypertension; E78.5 Hyperlipidemia, unspecified; M19.90 Unspecified osteoarthritis, unspecified site; G89.29 Other chronic pain; M54.9 Dorsalgia, unspecified; K59.00 Constipation, unspecified; F32.A Depression, unspecified; F41.9 Anxiety disorder, unspecified; I73.00 Raynaud's syndrome without gangrene; Z96.653 Presence of artificial knee joint, bilateral; Z79.82 Long term (current) use of aspirin; Z79.899 Other long term (current) drug therapy; Z88.5 Allergy status to narcotic agent

== ENCOUNTER → 2024-02-11 | Outpatient (CLI) | payer MEDICARE, BC, OTHER ==
[~2024-02-11] MED LIST changes: -ACET1TAB55 PO; -CIPR500T39 PO; -COLA100C5 PO; -METR-265 PO; -MIRA3350 PO; -SENO8.6T5 PO
== END ==
LOC: M RAD 14:21
PROVIDERS: ATTEND Internal Medicine
DX: R10.9 Unspecified abdominal pain (principal); K57.20 Diverticulitis of large intestine with perforation and abscess without bleeding

== ENCOUNTER → 2024-02-13 | Outpatient (REF) | payer MEDICARE, BC ==
[~2024-02-13] MED LIST changes: +ACET1TAB55 PO; +ATOR1TAB21 PO; +C-101TAB3 PO; +CALC250T PO; +CETI-14 PO; +CIPR500T39 PO; +COLA100C5 PO; +FISH100015 PO; +GLUCTAB7 PO; +IRBE300T25 PO; +KETO2CR EXT; +MACR100C43 PO; +MAGN250T11 PO; +METR-265 PO; +MIRA3350 PO; +MULT-40 PO; +NORT10CA2 PO; +ONDA-282 PO; +RISATAB3 PO; +SENO8.6T5 PO
== END ==
LOC: M LAB REF 02-12 05:28
PROVIDERS: ATTEND Internal Medicine
DX: R42 Dizziness and giddiness (principal); R53.83 Other fatigue

== ENCOUNTER → 2024-02-18 | Outpatient (REF) | payer MEDICARE, BC | LOC: M LAB REF 10:24 | PROVIDERS: ATTEND Internal Medicine | DX: A04.72 Enterocolitis due to Clostridium difficile, not specified as recurrent (principal); R10.10 Upper abdominal pain, unspecified ==

== ENCOUNTER → 2024-03-02 | Outpatient (CLI) | payer MEDICARE, BC ==
[~2024-03-02] MED LIST changes: +GASTROGRAFIN SOLUTION 30ML As Ordered ONE
== END ==
LOC: M RAD 11:27
PROVIDERS: ATTEND Surgery
DX: K57.30 Diverticulosis of large intestine without perforation or abscess without bleeding (principal)
CPT/HCPCS: 74176; Q9963

== ENCOUNTER → 2024-03-22 | Outpatient (CLI) | payer MEDICARE, BC ==
[~2024-03-22] MED LIST changes: +ISOVUE-370 76% 100ML VIAL As Ordered ONE
== END ==
LOC: M RAD 15:14
PROVIDERS: ATTEND Surgery
DX: K57.30 Diverticulosis of large intestine without perforation or abscess without bleeding (principal)
CPT/HCPCS: 74177; Q9963; Q9967

== ENCOUNTER → 2024-04-15 | Outpatient (CLI) | payer MEDICARE, BC ==
[~2024-04-15] MED LIST changes: -GASTROGRAFIN SOLUTION 30ML As Ordered ONE; -ISOVUE-370 76% 100ML VIAL As Ordered ONE
== END ==
LOC: M RAD 09:20
PROVIDERS: ATTEND Internal Medicine
DX: E04.2 Nontoxic multinodular goiter (principal)

== ENCOUNTER → 2024-05-09 | Outpatient (CLI) | payer MEDICARE, BC | LOC: M LAB 12:13 | PROVIDERS: ATTEND Internal Medicine | DX: D44.9 Neoplasm of uncertain behavior of unspecified endocrine gland (principal) ==

== ENCOUNTER 2024-06-28 06:30 | Inpatient (IN) | payer MEDICARE, BC ==
[2024-06-28] VITALS (10 sets, daily range): BP systolic 107–167; BP diastolic 52–69; TEMP 97.5–98.1; O2SAT 96–99
[~2024-06-28] VITALS: Ht 157.5 cm; Wt 70.0 kg
[~2024-06-28 06:30] MED LIST changes: -KETO2CR EXT; +KETO2CR TOP; +MAGN100T PO
[2024-06-28] MEDS: ERTAPENEM 1GM VIAL (INVanz) As Ordered ONE (09:09)
[2024-06-28] MEDS: ERTAPENEM SODIUM 1 GM in NS MINI-BAG PLUS 50 ML IV ONE (09:09)
[2024-06-28] MEDS ORDERED: MIDAZOLAM INJ 2MG/2ML VIAL As Ordered ONE (09:23)
[2024-06-28] MEDS ORDERED: propofoL 200 MG/20 ML VIAL As Ordered ONE (09:23)
[2024-06-28] MEDS ORDERED: LIDOCAINE 2% 100MG/5ML SDV (FOR ANES.) As Ordered ONE (09:23)
[2024-06-28] MEDS ORDERED: ROCURONIUM BROMIDE 50MG/5ML VIAL As Ordered ONE (09:23)
[2024-06-28] MEDS ORDERED: SUGAMMADEX SODIUM 500 MG/5 ML VIAL (BRIDION) As Ordered ONE (09:23)
[2024-06-28] MEDS ORDERED: ONDANSETRON 4MG 2ML VIAL As Ordered ONE (09:23)
[2024-06-28] MEDS ORDERED: ACETAMINOPHEN 1000MG/100ML IV BAG As Ordered ONE (09:36)
[2024-06-28] MEDS: GLUCAGON INJ 1MG VIAL As Ordered ONE (11:12)
[2024-06-28] MEDS ORDERED: PHENYLephrine 500MCG 5ML (100MCG/ML) SYRINGE As Ordered ONE (11:28)
[2024-06-28] MEDS ORDERED: LIDOCAINE 2% W/EPINEPHRINE 20ML VIAL **PRES FREE As Ordered ONE (11:28)
[2024-06-28] MEDS ORDERED: ePHEDrine SULFATE 25 MG/5 ML(5MG/ML) SYRINGE As Ordered ONE (11:28)
[2024-06-28] MEDS ORDERED: IPRATROPIUM 0.5MG/ALBUTEROL 2.5MG INH SOL UD 3ML (DUONEB) NEB PRN (12:35)
[2024-06-28] MEDS ORDERED: fentaNYL 100 MCG/2 ML INJECTION IV PRN (12:40)
[2024-06-28] MEDS ORDERED: NALOXONE INJ 0.4MG/1ML VIAL IV PRN (12:50)
[2024-06-28] MEDS ORDERED: EPIDURAL/PCA KEYS XX PRN (12:50)
[2024-06-28] MEDS ORDERED: NALBUPHINE HCL 10 MG/ML 1ML AMP IV PRN (12:50)
[2024-06-28] MEDS: ONDANSETRON 4MG 2ML VIAL IV PRN ×2 (13:33→18:43)
[2024-06-28] MEDS: IPRATROPIUM 0.5MG/ALBUTEROL 2.5MG INH SOL UD 3ML (DUONEB) NEB SCH (14:00)
[2024-06-28] MEDS ORDERED: BUPIVACAINE HCL 0.5% 62.5 ML in NS 187.5 ML EPIDURAL SCH (15:00)
[2024-06-28] MEDS: BUPIVACAINE HCL 0.5% 62.5 ML in NS 187.5 ML XX SCH (15:16)
[2024-06-28] MEDS: NS (Normal Saline) 0.9% 1,000 ML IV SCH (16:30)
[2024-06-28 17:38] LABS: ALBUMIN 3.1 G/DL (3.2-5.2); BILIRUBIN,TOTAL 0.3 MG/DL (0.3-1.2); CALCIUM LEVEL 9.4 MG/DL (8.3-10.6); CREATININE FOR GFR 1.06 MG/DL (0.55-1.30); GLOMERULAR FILTRATION RATE 53.7 (>39); MAGNESIUM LEVEL 1.6 MG/DL (1.8-2.4); PHOSPHORUS LEVEL 4.4 MG/DL (2.4-5.1); POTASSIUM SERUM 4.4 MMOL/L (3.5-5.1); TOTAL PROTEIN 6.9 G/DL (5.7-8.2)
[2024-06-28] MEDS: MAG SULF 1GM/100ML (MAG RUN) 1 GM in IV 1 EA IV ONE (18:43)
[2024-06-28] MEDS: KETOROLAC 30 MG/ML 1ML VIAL IV SCH (20:00)
[2024-06-28] MEDS: METOPROLOL TART 25 MG TABLET PO SCH (20:21)
[2024-06-28] MEDS: IRBESARTAN 150MG TAB PO SCH (20:21)
[2024-06-28] MEDS: BOUDREAUX'S BUTT PASTE TOP SCH (20:48)
[2024-06-28] MEDS: CLOTRIMAZOLE 1% TOPICAL CREAM 30GM TOP SCH (20:48)
[2024-06-29] VITALS (24 sets, daily range): BP systolic 89–143; BP diastolic 48–69; TEMP 97.3–98.3; O2SAT 88–100
[2024-06-29 04:37] LABS: HEMATOCRIT 30.2 % (36.0-47.0); HEMOGLOBIN 9.6 g/dl (12.0-15.5); MEAN CORPUSCULAR HGB CONC 31.8 g/dl (32.0-36.5); MEAN CORPUSCULAR VOLUME 91.2 fl (80.0-96.0); PLATELET COUNT, AUTOMATED 155 10^3/uL (150-450); RED BLOOD COUNT 3.31 10^6/uL (4.00-5.40); WHITE BLOOD COUNT 10.6 10^3/uL (4.0-10.0)
[2024-06-29 05:03] LABS: CALCIUM LEVEL 8.2 MG/DL (8.3-10.6); CREATININE FOR GFR 1.05 MG/DL (0.55-1.30); GLOMERULAR FILTRATION RATE 54.2 (>39); POTASSIUM SERUM 4.5 MMOL/L (3.5-5.1)
[2024-06-29] MEDS: PANTOPRAZOLE 40MG VIAL IV SCH (08:28)
[2024-06-29 09:27] LABS: MAGNESIUM LEVEL 1.7 MG/DL (1.8-2.4)
[2024-06-29] MEDS: ATORVASTATIN 20 MG TAB PO SCH (09:31)
[2024-06-29] MEDS: CETIRIZINE (ZyrTEC) 10 MG TAB PO SCH (09:31)
[2024-06-29] MEDS ORDERED: ACET650T15 PO (10:34)
[2024-06-29] MEDS ORDERED: ATOR1TAB21 PO (10:34)
[2024-06-29] MEDS ORDERED: OMEP40CA5 PO (10:34)
[2024-06-29] MEDS ORDERED: HOME MED LIST COMPLETE! XX SCH (10:35)
[2024-06-29] MEDS ORDERED: ENOXAPARIN 40MG/0.4ML SYRINGE (J1650 PER 10MG) SC ONE (14:40)
[2024-06-29] MEDS: MAG SULF 1GM/100ML (MAG RUN) 1 GM in IV 1 EA IV ONE (16:01)
[2024-06-29] MEDS: diphenhydrAMINE 50MG/ML VIAL IV PRN (20:13)
[2024-06-30] VITALS (17 sets, daily range): BP systolic 98–155; BP diastolic 47–66; TEMP 97.6–98.3; O2SAT 93–98
[2024-06-30 05:15] LABS: HEMATOCRIT 29.8 % (36.0-47.0); HEMOGLOBIN 9.4 g/dl (12.0-15.5); MEAN CORPUSCULAR HEMOGLOBIN 29.3 pg (27.0-33.0); MEAN CORPUSCULAR HGB CONC 31.5 g/dl (32.0-36.5); MEAN CORPUSCULAR VOLUME 92.8 fl (80.0-96.0); PLATELET COUNT, AUTOMATED 130 10^3/uL (150-450); RED BLOOD COUNT 3.21 10^6/uL (4.00-5.40); WHITE BLOOD COUNT 7.5 10^3/uL (4.0-10.0)
[2024-06-30 05:47] LABS: CALCIUM LEVEL 8.8 MG/DL (8.3-10.6); CREATININE FOR GFR 1.1 MG/DL (0.55-1.30); GLOMERULAR FILTRATION RATE 51.4 (>39); POTASSIUM SERUM 4.5 MMOL/L (3.5-5.1)
[2024-06-30 08:00] LABS: MAGNESIUM LEVEL 1.8 MG/DL (1.8-2.4)
[2024-06-30] MEDS ORDERED: ACETAMINOPHEN 325 MG TAB PO PRN (10:40)
[2024-06-30] MEDS ORDERED: fentaNYL 100 MCG/2 ML INJECTION As Ordered ONE (13:58)
[2024-06-30] MEDS: MIDAZOLAM INJ 2MG/2ML VIAL IV PRN ×2 (14:15→14:36)
[2024-06-30] MEDS: LIDOCAINE 1% SDV 5ML VIAL PN ONE (15:45)
[2024-07-01 05:13] LABS: HEMATOCRIT 32.3 % (36.0-47.0); HEMOGLOBIN 9.8 g/dl (12.0-15.5); MEAN CORPUSCULAR HEMOGLOBIN 28.7 pg (27.0-33.0); MEAN CORPUSCULAR HGB CONC 30.3 g/dl (32.0-36.5); MEAN CORPUSCULAR VOLUME 94.4 fl (80.0-96.0); PLATELET COUNT, AUTOMATED 139 10^3/uL (150-450); RED BLOOD COUNT 3.42 10^6/uL (4.00-5.40); WHITE BLOOD COUNT 7.1 10^3/uL (4.0-10.0)
[2024-07-01 05:35] LABS: CALCIUM LEVEL 9.1 MG/DL (8.3-10.6); CREATININE FOR GFR 1.11 MG/DL (0.55-1.30); GLOMERULAR FILTRATION RATE 50.9 (>39); POTASSIUM SERUM 4.7 MMOL/L (3.5-5.1)
[2024-07-01 09:38] VITALS: BP 127/59; TEMP 98.2; O2SAT 95
[2024-07-01 12:00] VITALS: BP 136/63; TEMP 98.3; O2SAT 96
[2024-07-01] MEDS: PREPARATION H SUPP (HEMORRHOID) PR ONE (15:48)
[2024-07-01 16:08] VITALS: BP 104/51; TEMP 96.8; O2SAT 91
[2024-07-01 19:32] VITALS: BP 106/55; TEMP 97.9; O2SAT 98
[2024-07-02 04:00] VITALS: BP 102/42; TEMP 97.9; O2SAT 97
[2024-07-02 07:06] LABS: HEMATOCRIT 31.3 % (36.0-47.0); HEMOGLOBIN 9.8 g/dl (12.0-15.5); MEAN CORPUSCULAR HEMOGLOBIN 29.3 pg (27.0-33.0); MEAN CORPUSCULAR HGB CONC 31.3 g/dl (32.0-36.5); MEAN CORPUSCULAR VOLUME 93.4 fl (80.0-96.0); PLATELET COUNT, AUTOMATED 142 10^3/uL (150-450); RED BLOOD COUNT 3.35 10^6/uL (4.00-5.40); WHITE BLOOD COUNT 8.1 10^3/uL (4.0-10.0)
[2024-07-02 07:41] LABS: CALCIUM LEVEL 9.1 MG/DL (8.3-10.6); CREATININE FOR GFR 1.32 MG/DL (0.55-1.30); GLOMERULAR FILTRATION RATE 41.7 (>39)
[2024-07-02 12:00] VITALS: BP 94/45; TEMP 98.1; O2SAT 96
[2024-07-02 20:00] VITALS: BP 101/48; TEMP 97.9; O2SAT 93
[2024-07-03 04:00] VITALS: BP 110/44; TEMP 98.4; O2SAT 95
[2024-07-03 07:01] LABS: HEMATOCRIT 30.9 % (36.0-47.0); HEMOGLOBIN 9.7 g/dl (12.0-15.5); MEAN CORPUSCULAR HEMOGLOBIN 29.6 pg (27.0-33.0); MEAN CORPUSCULAR HGB CONC 31.4 g/dl (32.0-36.5); MEAN CORPUSCULAR VOLUME 94.2 fl (80.0-96.0); PLATELET COUNT, AUTOMATED 145 10^3/uL (150-450); RED BLOOD COUNT 3.28 10^6/uL (4.00-5.40); WHITE BLOOD COUNT 9.1 10^3/uL (4.0-10.0)
[2024-07-03 07:25] LABS: CALCIUM LEVEL 9.1 MG/DL (8.3-10.6); CREATININE FOR GFR 1.28 MG/DL (0.55-1.30); GLOMERULAR FILTRATION RATE 43.2 (>39); POTASSIUM SERUM 4.6 MMOL/L (3.5-5.1)
[2024-07-03 12:00] VITALS: BP 86/40; TEMP 98.2; O2SAT 99
[2024-07-03] MEDS: NS (Normal Saline) 0.9% 1,000 ML IV ONE (12:07)
[2024-07-03 13:05] VITALS: BP 100/44; TEMP 97.7; O2SAT 96
[2024-07-03 18:30] VITALS: BP 132/56
[2024-07-03 20:00] VITALS: BP 130/55; TEMP 97.9; O2SAT 90
[2024-07-04 04:00] VITALS: BP 131/56; TEMP 98.2; O2SAT 92
[2024-07-04 05:49] LABS: HEMATOCRIT 28.5 % (36.0-47.0); HEMOGLOBIN 8.8 g/dl (12.0-15.5); MEAN CORPUSCULAR HEMOGLOBIN 28.6 pg (27.0-33.0); MEAN CORPUSCULAR HGB CONC 30.9 g/dl (32.0-36.5); MEAN CORPUSCULAR VOLUME 92.5 fl (80.0-96.0); PLATELET COUNT, AUTOMATED 152 10^3/uL (150-450); RED BLOOD COUNT 3.08 10^6/uL (4.00-5.40); WHITE BLOOD COUNT 7.8 10^3/uL (4.0-10.0)
[2024-07-04 06:23] LABS: CALCIUM LEVEL 8.7 MG/DL (8.3-10.6); CREATININE FOR GFR 1.21 MG/DL (0.55-1.30); GLOMERULAR FILTRATION RATE 46.1 (>39); POTASSIUM SERUM 4.8 MMOL/L (3.5-5.1)
[2024-07-04 08:05] VITALS: BP 110/59
[2024-07-04 12:00] VITALS: BP 94/48; TEMP 97.7; O2SAT 99
[2024-07-04 13:02] VITALS: BP 110/42
== END 2024-07-04 13:23 | disposition home or self-care (01) | DRG 330 ==
LOC: M SDC 06:30 → M RR INP 12:34 → M ICU 16:20 → M MSPAV 07-01 16:07
PROVIDERS: ADMIT Surgery; ATTEND Surgery
PROC: 0DNN4ZZ Release Sigmoid Colon, Percutaneous Endoscopic Approach (ICD-10-PCS; 2024-06-28)
PROC: 0DTN4ZZ Resection of Sigmoid Colon, Percutaneous Endoscopic Approach (ICD-10-PCS; principal; 2024-06-28 07:30)
DX: K57.20 Diverticulitis of large intestine with perforation and abscess without bleeding (principal); N82.4 Other female intestinal-genital tract fistulae; I10 Essential (primary) hypertension; I35.9 Nonrheumatic aortic valve disorder, unspecified; E78.5 Hyperlipidemia, unspecified; I73.00 Raynaud's syndrome without gangrene; M19.90 Unspecified osteoarthritis, unspecified site; K22.70 Barrett's esophagus without dysplasia; Z79.82 Long term (current) use of aspirin; Z79.899 Other long term (current) drug therapy; Z88.5 Allergy status to narcotic agent

== ENCOUNTER → 2024-07-08 | Outpatient (REF) | payer MEDICARE, OTHER ==
[~2024-07-08] MED LIST changes: +ACET650T15 PO
[2024-07-08 17:08] LABS: PERCENT SATURATION 19.6 % (13.2-45.0)
[2024-07-08 17:11] LABS: FERRITIN 119.6 NG/ML (7.3-270.7)
== END ==
LOC: M LAB REF 16:33
PROVIDERS: ATTEND Internal Medicine
DX: D64.9 Anemia, unspecified (principal)

== ENCOUNTER → 2024-10-21 | Outpatient (CLI) | payer MEDICARE, BC | LOC: M WHC 07:50 | PROVIDERS: ATTEND Internal Medicine | DX: M85.851 Other specified disorders of bone density and structure, right thigh (principal); M85.852 Other specified disorders of bone density and structure, left thigh; Z13.820 Encounter for screening for osteoporosis; Z12.31 Encounter for screening mammogram for malignant neoplasm of breast; R92.323 Mammographic fibroglandular density, bilateral breasts ==

== ENCOUNTER → 2024-10-21 | Outpatient (CLI) | payer MEDICARE, BC | LOC: M WHC 08:12 | PROVIDERS: ATTEND Specialist | DX: Z12.31 Encounter for screening mammogram for malignant neoplasm of breast (principal); R92.323 Mammographic fibroglandular density, bilateral breasts ==

== ENCOUNTER → 2024-11-08 | Outpatient (REF) | payer MEDICARE, OTHER ==
[2024-11-08 13:30] LABS: CREATININE FOR GFR 1.3 MG/DL (0.55-1.30); GLOMERULAR FILTRATION RATE 42.6 (>39)
== END ==
LOC: M LABWUC 12:37
PROVIDERS: ATTEND Physician Assistant Medical
DX: J38.00 Paralysis of vocal cords and larynx, unspecified (principal)

== ENCOUNTER → 2024-11-18 | Outpatient (CLI) | payer MEDICARE, BC ==
[~2024-11-18] MED LIST changes: +ISOVUE-370 76% 100ML VIAL As Ordered ONE
== END ==
LOC: M RAD 09:54
PROVIDERS: ATTEND Physician Assistant Medical
DX: J38.00 Paralysis of vocal cords and larynx, unspecified (principal)
CPT/HCPCS: 70491; Q9967

== ENCOUNTER → 2024-12-06 | Outpatient (CLI) | payer MEDICARE, BC ==
[~2024-12-06] MED LIST changes: -FISH100015 PO; +FISH100019 PO; -ISOVUE-370 76% 100ML VIAL As Ordered ONE
== END ==
LOC: M RAD 13:42
PROVIDERS: ATTEND Otolaryngology
DX: E04.1 Nontoxic single thyroid nodule (principal)